=== PATIENT | male | born 1985 | race Two or more races ===

== ENCOUNTER 2016-12-24 20:49 | Inpatient (IN) | payer SELFPAY ==
[~2016-12-24] VITALS: Ht 165.1 cm
[2016-12-24] MEDS ORDERED: ACETAMINOPHEN 325 MG TAB PO ONE (21:17)
[2016-12-24] MEDS ORDERED: IBUPROFEN 600 MG TAB PO ONE ×2 (21:18→21:30)
[2016-12-24] MEDS ORDERED: ACETAMINOPHEN 500 MG TAB PO ONE (21:30)
[2016-12-24 22:20] LABS: Urine Blood TRACE /uL (Negative); Urine Color Yellow (Yellow); Urine Glucose Normal (Normal); Urine Granular Cast FEW /lpf (0); Urine Mucus FEW (None Seen); Urine Nitrite Negative (Negative); Urine RBC 3 /hpf (0 - 3); Urine Squamous Epithelial Cell FEW /hpf (<5)
[2016-12-24 22:27] LABS: Urine Ketone 3+ (Negative)
[2016-12-24 22:28] LABS: Urine Bilirubin 2+ (Negative)
[2016-12-24 22:33] LABS: CONDITION Y; Hematocrit 46.5 % (41.0-53.0); Hemoglobin 15.9 g/dL (13.5-17.5); Mean Corpuscular Hemoglobin 31.5 pg (28.0-32.0); Mean Corpuscular Hgb Conc. 34.2 g/dL (32.0-36.0); Mean Corpuscular Volume 92.2 fL (80.0-100.0); Platelet Count (auto) 125 10^3/uL (140-450); Red Cell Distribution Width 16.5 % (11.6-16.0); White Blood Cell 9.3 10^3/uL (4.4-10.8)
[2016-12-24 22:36] LABS: Metamyelocytes % 0; Myelocytes % 0; Promyelocytes % 0; Reactive Lymphocytes 0
[2016-12-24 22:54] LABS: Giant Platelets Few; Platelet Estimate Decreased
[2016-12-25 00:16] LABS: Albumin 2.2 g/dL (3.4-5.0); Calcium 6.3 mg/dL (8.5-10.1)
[2016-12-25 00:30] LABS: Basophils # (auto) 0 uL; Basophils % (auto) 0.2 % (0.0-2.0); CONDITION Y; Eosinophils # (auto) 0 uL; Eosinophils % (auto) 0.1 % (0.0-7.0); Hematocrit 46.7 % (41.0-53.0); Hemoglobin 15.5 g/dL (13.5-17.5); Lymphocytes # (auto) 0.7 uL; Lymphocytes % (auto) 7.3 % (10.0-50.0); Mean Corpuscular Hemoglobin 30.2 pg (28.0-32.0); Mean Corpuscular Hgb Conc. 33.1 g/dL (32.0-36.0); Mean Corpuscular Volume 91.3 fL (80.0-100.0); Mean Platelet Volume 10.6 fL (7.4-10.4); Monocytes # (auto) 0.2 uL; Neutrophils # (auto) 8.6 uL; Neutrophils % (auto) 90.4 % (37.0-80.0); Platelet Count (auto) 112 10^3/uL (140-450); Red Cell Distribution Width 16.1 % (11.6-16.0); White Blood Cell 9.6 10^3/uL (4.4-10.8)
[2016-12-25 00:39] LABS: BUN/Creatinine Ratio 6.8
[2016-12-25 00:41] LABS: Bilirubin, Total 4.8 mg/dL (0.2-1.0); Total Protein 8.4 g/dL (6.4-8.2)
[2016-12-25 00:42] LABS: Potassium 5.7 mmol/L (3.5-5.1)
[2016-12-25] MEDS ORDERED: THIAMINE HCL 100 MG/ML 2ML VIAL IV ONE (01:45)
[2016-12-25] MEDS ORDERED: SODIUM CHLORIDE 0.9% 1,000 ML IV ONE (01:45)
[2016-12-25] MEDS ORDERED: TEMAZEPAM 15 MG CAP PO PRN (03:45)
[2016-12-25] MEDS ORDERED: LORazepam 0.5 MG TAB PO PRN (03:45)
[2016-12-25] MEDS ORDERED: LACTULOSE 20Gm/30ML SOLN PO PRN (03:45)
[2016-12-25] MEDS ORDERED: HYDROcodone-ACET 5/325MG TAB PO PRN (03:45)
[2016-12-25] MEDS ORDERED: MORPHINE SULF INJ 2 MG/ML SYRINGE 1ML IV PRN (04:00)
[2016-12-25] MEDS ORDERED: NITROGLYCERIN 0.4 MG SL TAB SL PRN (04:00)
[2016-12-25] MEDS ORDERED: SODIUM POLYSTYRENE SULF 15GM/60ML SUSP PO ONE (04:15)
[2016-12-25] MEDS: SODIUM CHLORIDE 0.9% 1,000 ML IV SCH ×2 (04:15→12:15)
[2016-12-25] MEDS ORDERED: LACTULOSE 20Gm/30ML SOLN PO ONE (05:15)
[2016-12-25] MEDS: ACCU-CHEK COMFORT CURVE STRIP VI SCH ×5 (08:00→23:48)
[2016-12-25 08:35] VITALS: BP 136/83
[2016-12-25] MEDS: cefTRIAXone 1GM/50ML D5W 50 ML IV SCH (09:40)
[2016-12-25] MEDS: MORPHINE SULF INJ 2 MG/ML SYRINGE 1ML IV PRN ×2 (13:10→21:15)
[2016-12-25] MEDS: ONDANSETRON HCL 4 MG/2 ML VIAL IV PRN ×2 (13:10→21:15)
[2016-12-25] MEDS: THIAMINE INJ 100 MG, MULTIPLE VITAMIN 10 ML, FOLIC ACID 1 MG, MAGNESIUM SULF SDV 50% 8 ... IV SCH ×5 (13:11)
[2016-12-25 14:32] VITALS: BP 125/68
[2016-12-25] MEDS: ACETAMINOPHEN 500 MG TAB PO PRN ×2 (14:42→20:45)
[2016-12-25 17:24] VITALS: BP 128/79
[2016-12-25 21:30] VITALS: BP 127/78
[2016-12-25] MEDS: SOD CHL 0.45% 1,000 ML IV SCH (23:48)
[2016-12-26] MEDS: SOD CHL 0.45% 1,000 ML IV SCH (04:37)
[2016-12-26] MEDS: ACCU-CHEK COMFORT CURVE STRIP VI SCH ×5 (04:37→20:00)
[2016-12-26] MEDS: ONDANSETRON HCL 4 MG/2 ML VIAL IV PRN (04:37)
[2016-12-26] MEDS: MORPHINE SULF INJ 2 MG/ML SYRINGE 1ML IV PRN (04:38)
[2016-12-26 05:00] VITALS: BP 137/72
[2016-12-26] MEDS: ACETAMINOPHEN 500 MG TAB PO PRN (06:21)
[2016-12-26 06:24] LABS: Basophils # (auto) 0 uL; CONDITION Y; Eosinophils # (auto) 0 uL; Eosinophils % (auto) 0.1 % (0.0-7.0); Hematocrit 40.1 % (41.0-53.0); Hemoglobin 13.9 g/dL (13.5-17.5); Lymphocytes # (auto) 0.8 uL; Lymphocytes % (auto) 10.4 % (10.0-50.0); Mean Corpuscular Hgb Conc. 34.8 g/dL (32.0-36.0); Mean Corpuscular Volume 89.1 fL (80.0-100.0); Mean Platelet Volume 8.2 fL (7.4-10.4); Monocytes # (auto) 0.5 uL; Monocytes % (auto) 6.2 % (0.0-12.0); Neutrophils # (auto) 6.1 uL; Neutrophils % (auto) 83.3 % (37.0-80.0); Platelet Count (auto) 160 10^3/uL (140-450); White Blood Cell 7.3 10^3/uL (4.4-10.8)
[2016-12-26 06:45] LABS: Calcium 7.3 mg/dL (8.5-10.1)
[2016-12-26 06:52] LABS: BUN/Creatinine Ratio 7.8
[2016-12-26 06:53] LABS: Potassium 3.4 mmol/L (3.5-5.1)
[2016-12-26 09:00] VITALS: BP 146/95
[2016-12-26] MEDS: cefTRIAXone 1GM/50ML D5W 50 ML IV SCH (09:23)
[2016-12-26] MEDS ORDERED: SOD CHL 0.45% WITH 20MEQ KCL 1,000 ML IV SCH (09:45)
[2016-12-26] MEDS: THIAMINE INJ 100 MG, MULTIPLE VITAMIN 10 ML, FOLIC ACID 1 MG, MAGNESIUM SULF SDV 50% 8 ... IV SCH ×5 (12:00)
[2016-12-26 13:00] VITALS: BP 144/97
[2016-12-26 17:00] VITALS: BP 147/86
[2016-12-26] MEDS ORDERED: TAMSULOSIN HYDROCHLORIDE 0.4 MG CAP PO SCH (18:00)
[2016-12-26] MEDS ORDERED: chlordiazePOXIDE HCL 5 MG CAP PO PRN (21:00)
== END 2016-12-26 22:18 | disposition left against medical advice (07) | DRG 438 ==
LOC: ER 20:55 → TELE 20:56 → TELE-CENTR 12-25 08:41 → CENTRAL 12-25 16:29
PROVIDERS: ADMIT Nurse Practitioner Family; ATTEND Internal Medicine Pulmonary Disease
DX: K85.20 Alcohol induced acute pancreatitis without necrosis or infection (principal); K83.1 Obstruction of bile duct; E10.10 Type 1 diabetes mellitus with ketoacidosis without coma; E87.1 Hypo-osmolality and hyponatremia; R18.8 Other ascites; J98.11 Atelectasis; E11.9 Type 2 diabetes mellitus without complications; E66.9 Obesity, unspecified; F17.210 Nicotine dependence, cigarettes, uncomplicated; N32.0 Bladder-neck obstruction; K62.89 Other specified diseases of anus and rectum; E87.5 Hyperkalemia; F10.10 Alcohol abuse, uncomplicated; K59.00 Constipation, unspecified; K76.0 Fatty (change of) liver, not elsewhere classified; Z83.3 Family history of diabetes mellitus
CPT/HCPCS: 36415; 36600; 51702; 74176; 76705; 80048; 80053; 80307; 81001; 82010; 82150; 82805; 82962; 83036; 83690; 85007; 85025; 85027; 93005; 96361; 96374; J0696; J2405

== ENCOUNTER 2016-12-27 03:22 | Emergency (ER) | payer SELFPAY ==
[~2016-12-27] VITALS: Ht 165.1 cm; Wt 86.2 kg
[2016-12-27 04:16] VITALS: BP 164/99
[2016-12-27] MEDS ORDERED: ACETAMINOPHEN 325 MG TAB PO ONE (08:29)
== END 2016-12-27 06:02 | disposition left against medical advice (07) ==
LOC: ER 03:22
DX: R33.9 Retention of urine, unspecified (principal); R31.9 Hematuria, unspecified; Z53.21 Procedure and treatment not carried out due to patient leaving prior to being seen by health care provider
CPT/HCPCS: A4565

== ENCOUNTER 2016-12-27 08:09 | Inpatient (IN) | payer MEDICAID ==
[~2016-12-27] VITALS: Ht 165.1 cm; Wt 80.4 kg
[2016-12-27] MEDS ORDERED: ACETAMINOPHEN 325 MG TAB PO ONE (08:45)
[2016-12-27] MEDS ORDERED: cefTRIAXone 1GM/50ML D5W 50 ML IV ONE ×2 (08:45→19:15)
[2016-12-27 09:44] LABS: Basophils # (auto) 0 uL; Basophils % (auto) 0.1 % (0.0-2.0); CONDITION Y; Eosinophils # (auto) 0 uL; Hematocrit 35.4 % (41.0-53.0); Hemoglobin 12.5 g/dL (13.5-17.5); Lymphocytes # (auto) 0.5 uL; Lymphocytes % (auto) 7.1 % (10.0-50.0); Mean Corpuscular Hemoglobin 31.4 pg (28.0-32.0); Mean Corpuscular Hgb Conc. 35.2 g/dL (32.0-36.0); Mean Corpuscular Volume 89.1 fL (80.0-100.0); Mean Platelet Volume 7.8 fL (7.4-10.4); Monocytes # (auto) 1.2 uL; Monocytes % (auto) 15.4 % (0.0-12.0); Neutrophils # (auto) 5.9 uL; Neutrophils % (auto) 77.4 % (37.0-80.0); Platelet Count (auto) 209 10^3/uL (140-450); Red Cell Distribution Width 15.9 % (11.6-16.0); White Blood Cell 7.7 10^3/uL (4.4-10.8)
[2016-12-27 09:59] LABS: Albumin 2.2 g/dL (3.4-5.0); BUN/Creatinine Ratio 16.9; Bilirubin, Total 3.4 mg/dL (0.2-1.0); Calcium 8.2 mg/dL (8.5-10.1); Total Protein 7.5 g/dL (6.4-8.2)
[2016-12-27] MEDS ORDERED: POTASSIUM CHL 20 Meq TABLET PO ONE ×3 (10:08→18:15)
[2016-12-27 10:11] LABS: Potassium 2.7 mmol/L (3.5-5.1)
[2016-12-27] MEDS ORDERED: IBUPROFEN 600 MG TAB PO ONE ×2 (14:08→14:15)
[2016-12-27] MEDS ORDERED: PROMETHAZINE HCL 25 MG/ML 1ML IV ONE (17:00)
[2016-12-27] MEDS ORDERED: TAMSULOSIN HYDROCHLORIDE 0.4 MG CAP PO ONE (17:00)
[2016-12-27] MEDS ORDERED: NALBUPHINE HCL 10 MG/1ml INJECTION IV ONE (17:00)
[2016-12-27] MEDS ORDERED: SODIUM CHLORIDE 0.9% 1,000 ML IV ONE (17:04)
[2016-12-27] MEDS ORDERED: POTASSIUM CHL 10% (20 MEQ/15ML) ORAL SOLN PO ONE (17:15)
[2016-12-27] MEDS ORDERED: OLANZapine 5 MG TAB PO ONE (17:30)
[2016-12-27] MEDS ORDERED: LORazepam 2MG/ML-1ML VIAL ONE ×3 (17:54→20:41)
[2016-12-27] MEDS ORDERED: LORazepam 2MG/ML-1ML VIAL IV ONE ×3 (18:15→21:00)
[2016-12-27] MEDS ORDERED: HALOPERIDOL LACTATE 5 MG/ML INJ VIAL ONE (18:43)
[2016-12-27] MEDS ORDERED: SODIUM CHLORIDE 0.9% 1,000 ML IV SCH (19:00)
[2016-12-27] MEDS ORDERED: HALOPERIDOL LACTATE 5 MG/ML INJ VIAL IM ONE ×2 (19:00)
[2016-12-27] MEDS ORDERED: NITROGLYCERIN 0.4 MG SL TAB SL PRN (19:15)
[2016-12-27] MEDS ORDERED: chlordiazePOXIDE HCL 5 MG CAP ONE (19:15)
[2016-12-27] MEDS ORDERED: MORPHINE SULF INJ 2 MG/ML SYRINGE 1ML IV PRN (19:15)
[2016-12-27] MEDS ORDERED: LORazepam 2MG/ML-1ML VIAL IV PRN (19:15)
[2016-12-27] MEDS ORDERED: ONDANSETRON HCL 4 MG/2 ML VIAL IV PRN (19:15)
[2016-12-27 19:24] LABS: Hematocrit 25.2 % (41.0-53.0); Hemoglobin 8.8 g/dL (13.5-17.5)
[2016-12-27] MEDS ORDERED: chlordiazePOXIDE HCL 5 MG CAP PO ONE (19:30)
[2016-12-27] MEDS ORDERED: chlordiazePOXIDE HCL 25 MG CAP PO ONE (20:00)
[2016-12-27] MEDS: SOD CHL 0.9%/ KCL 40MEQ 1,000 ML IV SCH (20:19)
[2016-12-27] MEDS ORDERED: LIDOCAINE 2% JELLY 11ml (GLYDO) ONE (21:15)
[2016-12-27] MEDS ORDERED: LIDOCAINE 2% JELLY 11ml (GLYDO) UR ONE (21:15)
[2016-12-27] MEDS: metroNIDAZOLE 250MG/50 ML 50 ML IV SCH (21:51)
[2016-12-28] MEDS ORDERED: chlordiazePOXIDE HCL 5 MG CAP PO SCH
[2016-12-28 00:45] LABS: Hematocrit 25.5 % (41.0-53.0); Hemoglobin 8.5 g/dL (13.5-17.5)
[2016-12-28] MEDS: LORazepam 2MG/ML-1ML VIAL IV PRN ×9 (02:28→22:30)
[2016-12-28] MEDS ORDERED: HALOPERIDOL LACTATE 5 MG/ML INJ VIAL IM ONE (03:00)
[2016-12-28] MEDS: SOD CHL 0.9%/ KCL 40MEQ 1,000 ML IV SCH ×3 (04:21→21:16)
[2016-12-28] MEDS ORDERED: ACETAMINOPHEN 650 MG RECT SUPP PR ONE ×2 (04:38→05:00)
[2016-12-28 04:41] LABS: Basophils # (auto) 0 uL; Basophils % (auto) 0.1 % (0.0-2.0); CONDITION Y; DEFINITIVE SEE PRINTOUT; Eosinophils # (auto) 0 uL; Eosinophils % (auto) 0.6 % (0.0-7.0); Hematocrit 22.2 % (41.0-53.0); Hemoglobin 7.7 g/dL (13.5-17.5); Lymphocytes # (auto) 0.4 uL; Lymphocytes % (auto) 6.5 % (10.0-50.0); Mean Corpuscular Hemoglobin 31.3 pg (28.0-32.0); Mean Corpuscular Hgb Conc. 34.6 g/dL (32.0-36.0); Mean Corpuscular Volume 90.4 fL (80.0-100.0); Mean Platelet Volume 7.8 fL (7.4-10.4); Monocytes % (auto) 16.8 % (0.0-12.0); Neutrophils # (auto) 4.4 uL; Platelet Count (auto) 195 10^3/uL (140-450); Red Cell Distribution Width 16.3 % (11.6-16.0); White Blood Cell 5.8 10^3/uL (4.4-10.8)
[2016-12-28 05:10] LABS: Albumin 1.6 g/dL (3.4-5.0); Bilirubin, Total 1.7 mg/dL (0.2-1.0); Calcium 7.4 mg/dL (8.5-10.1); Potassium 3.5 mmol/L (3.5-5.1); Total Protein 5.3 g/dL (6.4-8.2)
[2016-12-28] MEDS: metroNIDAZOLE 250MG/50 ML 50 ML IV SCH ×3 (05:25→22:37)
[2016-12-28] MEDS: chlordiazePOXIDE HCL 25 MG CAP PO SCH ×4 (05:25→17:49)
[2016-12-28] MEDS: MORPHINE SULF INJ 2 MG/ML SYRINGE 1ML IV PRN ×3 (05:45→12:54)
[2016-12-28] MEDS ORDERED: ACETAMINOPHEN 325 MG TAB PO ONE (07:00)
[2016-12-28] MEDS: cefTRIAXone 1GM/50ML D5W 50 ML IV SCH (09:10)
[2016-12-28] MEDS ORDERED: SODIUM CHLORIDE 0.9% 1,000 ML IV ONE (09:45)
[2016-12-28] MEDS: ACETAMINOPHEN 650 MG RECT SUPP PR PRN ×2 (10:17→21:34)
[2016-12-28] MEDS: HALOPERIDOL LACTATE 5 MG/ML INJ VIAL IM PRN ×3 (10:45→22:30)
[2016-12-28] MEDS ORDERED: THIAMINE INJ 100 MG, MULTIPLE VITAMIN 10 ML, FOLIC ACID 1 MG, MAGNESIUM SULF SDV 50% 8 ... IV ONE ×5 (14:30)
[2016-12-28] MEDS ORDERED: LORazepam 2MG/ML-1ML VIAL ONE (23:48)
[2016-12-28] MEDS ORDERED: diphenhdrAMINE HCL 50 MG/1 ML VL ONE (23:52)
[2016-12-28] MEDS ORDERED: HALOPERIDOL LACTATE 5 MG/ML INJ VIAL ONE (23:52)
[2016-12-28] MEDS ORDERED: ETOMIDATE (2MG/ML) 20ML VIAL IV ONE (23:58)
[2016-12-28] MEDS ORDERED: SUCCINYLCHOLINE CHLORIDE 20 MG/ML 10ML VIAL IV ONE (23:58)
[2016-12-29] VITALS (91 sets, daily range): BP systolic 76–140; BP diastolic 29–87
[2016-12-29] MEDS ORDERED: MIDAZOLAM DRIP 50 mg/50mL 50 ML IV ONE ×2 (00:11→03:08)
[2016-12-29] MEDS ORDERED: HALOPERIDOL LACTATE 5 MG/ML INJ VIAL ONE (00:13)
[2016-12-29] MEDS ORDERED: LORazepam 2MG/ML-1ML VIAL ONE (00:14)
[2016-12-29] MEDS ORDERED: diphenhdrAMINE HCL 50 MG/1 ML VL ONE (00:14)
[2016-12-29] MEDS ORDERED: SUCCINYLCHOLINE CHLORIDE 20 MG/ML 10ML VIAL IV ONE ×3 (00:17→05:00)
[2016-12-29] MEDS ORDERED: PROPOFOL 100 ML IV ONE ×2 (00:40→03:08)
[2016-12-29] MEDS ORDERED: cefTRIAXone 1GM/50ML D5W 50 ML IV ONE (02:15)
[2016-12-29] MEDS ORDERED: PIPERACILLIN-TAZOB 3.375GM 100 ML IV ONE (02:15)
[2016-12-29 03:21] LABS: Allen Test No; Blood 02Sat 98.9 % (96-100); Blood COHb 0.3 % (0.5-1.5); Blood MetHb 0.4 % (0.0-1.5); HCO3 13.6 mmol/L (22-26.0); HHb 1.1 % (0.0-5.0); MODE VENT - PCV; O2Hb 98.2 % (94.0-97.0); PCO2 22.5 mmHg (35.0-45.0); PCO2(T) 24.6 mmHg (35.0-45.0); PO2 394.7 mmHg (80.0-100.0); Sample Type Arterial; pH 7.399 (7.350-7.450)
[2016-12-29] MEDS ORDERED: ACETAMINOPHEN 650 mg PER 20 mL UD ONE (03:55)
[2016-12-29 04:21] LABS: CONDITION Y; DEFINITIVE SEE PRINTOUT; Hematocrit 22.7 % (41.0-53.0); Hemoglobin 7.8 g/dL (13.5-17.5); Mean Corpuscular Hemoglobin 31.8 pg (28.0-32.0); Mean Corpuscular Hgb Conc. 34.2 g/dL (32.0-36.0); Mean Corpuscular Volume 92.9 fL (80.0-100.0); Mean Platelet Volume 7.8 fL (7.4-10.4); Platelet Count (auto) 314 10^3/uL (140-450); SUSPECT SEE PRINTOUT; White Blood Cell 12.9 10^3/uL (4.4-10.8)
[2016-12-29 04:31] LABS: TUBE NUMBER TUBE 3
[2016-12-29 04:32] LABS: CSF Mononuclear Cells 100 %; Description,CSF VERY SLIGHTLY RED
[2016-12-29 04:33] LABS: INR 1.01 (0.9-1.15)
[2016-12-29 04:46] LABS: Albumin 1.9 g/dL (3.4-5.0); BUN/Creatinine Ratio 15.3; Bilirubin, Total 1.6 mg/dL (0.2-1.0); Calcium 7.8 mg/dL (8.5-10.1); Magnesium 2.3 mg/dL (1.6-2.6); Potassium 3.7 mmol/L (3.5-5.1); Total Protein 6.2 g/dL (6.4-8.2)
[2016-12-29 04:51] LABS: Metamyelocytes % 0; Myelocytes % 0; Promyelocytes % 0; Reactive Lymphocytes 0
[2016-12-29] MEDS ORDERED: HALOPERIDOL LACTATE 5 MG/ML INJ VIAL IV ONE (05:00)
[2016-12-29] MEDS ORDERED: diphenhdrAMINE HCL 50 MG/1 ML VL IV ONE (05:00)
[2016-12-29] MEDS ORDERED: LORazepam 2MG/ML-1ML VIAL IV ONE (05:00)
[2016-12-29] MEDS ORDERED: ETOMIDATE (2MG/ML) 20ML VIAL IV ONE (05:00)
[2016-12-29 05:11] LABS: Anisocytosis Slight; Platelet Estimate Adequate; Tear Drop Cells FEW
[2016-12-29 05:12] LABS: Polychromasia Slight
[2016-12-29] MEDS: SOD CHL 0.9%/ KCL 40MEQ 1,000 ML IV SCH ×3 (05:20→21:57)
[2016-12-29] MEDS: PROPOFOL 100 ML IV SCH ×2 (05:25→20:00)
[2016-12-29] MEDS: MIDAZOLAM DRIP 50 mg/50mL 50 ML IV SCH ×2 (05:28→23:50)
[2016-12-29] MEDS ORDERED: VANCOMYCIN PER PHARMACY 0 MG IV SCH ×3 (05:45→15:30)
[2016-12-29] MEDS: chlordiazePOXIDE HCL 25 MG CAP PO SCH ×5 (06:00→23:51)
[2016-12-29] MEDS: metroNIDAZOLE 250MG/50 ML 50 ML IV SCH ×3 (06:00→21:35)
[2016-12-29] MEDS ORDERED: NOREPINEPHRINE BITARTRATE 250 ML IV ONE (07:18)
[2016-12-29 07:28] LABS: Allen Test Yes; Base Excess -7.1 mmol/L (-2.0-2.0); Blood 02Sat 96.2 % (96-100); Blood COHb 0.4 % (0.5-1.5); Blood MetHb 0.5 % (0.0-1.5); HCO3 16.7 mmol/L (22-26.0); HHb 3.8 % (0.0-5.0); MODE VENT - PCV; O2Hb 95.3 % (94.0-97.0); PCO2 26.6 mmHg (35.0-45.0); PIP 26; PO2(T) 102.1 mmHg (80.0-100.0); Sample Type Arterial; pH 7.416 (7.350-7.450)
[2016-12-29] MEDS ORDERED: VANCOMYCIN 1GM/250ML D5W 250 ML IV SCH (08:00)
[2016-12-29] MEDS: cefTRIAXone 1GM/50ML D5W 50 ML IV SCH (09:30)
[2016-12-29] MEDS: VANCOMYCIN HCL 125MG/5ML ORAL SOL PO SCH ×3 (11:35→21:58)
[2016-12-29] MEDS: NOREPINEPHRINE BITARTRATE 250 ML IV SCH (14:46)
[2016-12-29 15:17] LABS: Urine Bilirubin Negative (Negative); Urine Glucose Normal (Normal); Urine Nitrite Negative (Negative); Urine RBC 287 /hpf (0 - 3); Urine Urobilinogen Normal (Negative)
[2016-12-29 15:19] LABS: Urine Blood 2+ /uL (Negative); Urine Color Yellow (Yellow); Urine Ketone 1+ (Negative)
[2016-12-29 15:25] LABS: BUN/Creatinine Ratio 17.1; Calcium 7.4 mg/dL (8.5-10.1)
[2016-12-29 15:28] LABS: Allen Test Yes; Base Excess -6.5 mmol/L (-2.0-2.0); HCO3 16.5 mmol/L (22-26.0); MODE VENT - PCV; PCO2 26.8 mmHg (35.0-45.0); PCO2(T) 29.3 mmHg (35.0-45.0); PIP 26; PO2 88.7 mmHg (80.0-100.0); PO2(T) 100.7 mmHg (80.0-100.0); Sample Type Arterial; pH 7.406 (7.350-7.450)
[2016-12-29] MEDS: THIAMINE INJ 100 MG, MULTIPLE VITAMIN 10 ML, FOLIC ACID 1 MG, MAGNESIUM SULF SDV 50% 8 ... IV SCH ×5 (16:01)
[2016-12-29] MEDS: VANCOMYCIN 1GM/250ML D5W 250 ML IV SCH (21:55)
[2016-12-29] MEDS: ALBUMIN 25% 100 ML IV SCH (22:01)
[2016-12-29] MEDS: LORazepam 2MG/ML-1ML VIAL IV PRN (23:53)
[2016-12-29] MEDS: ACETAMINOPHEN 650 mg PER 20 mL UD GT PRN (23:53)
[2016-12-30] VITALS (86 sets, daily range): BP systolic 90–187; BP diastolic 37–94
[2016-12-30] MEDS: PROPOFOL 100 ML IV SCH ×4 (00:12→22:50)
[2016-12-30] MEDS: fentaNYL Drip 2500mCg/250mlNS 250 ML IV SCH (00:21)
[2016-12-30 04:11] LABS: CONDITION Y; DEFINITIVE SEE PRINTOUT; Hematocrit 19.7 % (41.0-53.0); Hemoglobin 7.1 g/dL (13.5-17.5); INR 1.06 (0.9-1.15); Mean Corpuscular Hemoglobin 32.1 pg (28.0-32.0); Mean Corpuscular Hgb Conc. 35.7 g/dL (32.0-36.0); Mean Corpuscular Volume 89.8 fL (80.0-100.0); Mean Platelet Volume 7.8 fL (7.4-10.4); Platelet Count (auto) 236 10^3/uL (140-450); Prothrombin Time 11.6 sec (9.37-12.3); SUSPECT SEE PRINTOUT; White Blood Cell 25.4 10^3/uL (4.4-10.8)
[2016-12-30 04:28] LABS: Albumin 1.9 g/dL (3.4-5.0); BUN/Creatinine Ratio 23.3; Calcium 7.7 mg/dL (8.5-10.1); Magnesium 2.1 mg/dL (1.6-2.6); Phosphorus 1.8 mg/dL (2.5-4.90); Potassium 3.1 mmol/L (3.5-5.1); Total Protein 5.3 g/dL (6.4-8.2)
[2016-12-30] MEDS: MIDAZOLAM DRIP 50 mg/50mL 50 ML IV SCH ×3 (04:32→20:00)
[2016-12-30 04:52] LABS: Metamyelocytes % 4; Myelocytes % 2; Platelet Estimate Adequate; Promyelocytes % 0; Reactive Lymphocytes 0
[2016-12-30 04:53] LABS: Large Platelets FEW; Polychromasia Slight; Stomatocytes Few
[2016-12-30] MEDS: POTASSIUM CHL 20MEQ/100ML 100 ML IV SCH ×6 (05:18→14:30)
[2016-12-30] MEDS: metroNIDAZOLE 250MG/50 ML 50 ML IV SCH ×3 (05:20→22:00)
[2016-12-30] MEDS: VANCOMYCIN HCL 125MG/5ML ORAL SOL PO SCH ×4 (05:21→22:00)
[2016-12-30] MEDS: chlordiazePOXIDE HCL 25 MG CAP PO SCH ×2 (05:21→18:00)
[2016-12-30 06:12] LABS: Allen Test Modified; Blood 02Sat 95.2 % (96-100); Blood COHb 0.5 % (0.5-1.5); Blood MetHb 0.2 % (0.0-1.5); HCO3 18.4 mmol/L (22-26.0); HHb 4.8 % (0.0-5.0); MODE VENT - PCV; O2Hb 94.5 % (94.0-97.0); PCO2 29.7 mmHg (35.0-45.0); PCO2(T) 29.7 mmHg (35.0-45.0); PIP 27; PO2 82.8 mmHg (80.0-100.0); PO2(T) 82.8 mmHg (80.0-100.0); Sample Type Arterial; Spont Vt 663
[2016-12-30] MEDS ORDERED: ACYCLOVIR 10MG/KG Q8HR PER RX 0 ML IV SCH ×2 (08:45→09:00)
[2016-12-30] MEDS: VANCOMYCIN 1GM/250ML D5W 250 ML IV SCH ×2 (09:00→20:00)
[2016-12-30] MEDS: cefTRIAXone 1GM/50ML D5W 50 ML IV SCH (10:00)
[2016-12-30] MEDS ORDERED: PANTOPRAZOLE SODIUM 40 MG/10 ML VIAL IV SCH (10:00)
[2016-12-30] MEDS ORDERED: POTASSIUM PHOSPHATE 44 MEQ in SODIUM CHL 0.9% 250 ML IV ONE (10:45)
[2016-12-30] MEDS: SODIUM CHLORIDE 0.9% 1,000 ML IV SCH ×2 (11:15→21:08)
[2016-12-30] MEDS: FAMOTIDINE (10MG/ML) 2ML VL IV SCH (11:19)
[2016-12-30] MEDS: SODIUM CHL 0.9% IV SCH ×2 (13:00→18:00)
[2016-12-30] MEDS: ACYCLOVIR IV SCH ×2 (13:00→18:00)
[2016-12-30] MEDS ORDERED: LIDOCAINE 1% HCL (LOCAL ANESTH.) INJ 20ML MDV ID ONE (14:00)
[2016-12-30] MEDS: NOREPINEPHRINE BITARTRATE 250 ML IV SCH (14:46)
[2016-12-30 15:00] LABS: Hematocrit 21.5 % (41.0-53.0); Hemoglobin 7.8 g/dL (13.5-17.5)
[2016-12-30] MEDS: ALBUMIN 25% 100 ML IV SCH ×2 (17:00→22:08)
[2016-12-30 19:14] LABS: Hematocrit 20.2 % (41.0-53.0); Hemoglobin 7.3 g/dL (13.5-17.5)
[2016-12-30] MEDS ORDERED: SOD CHL 0.9%/ KCL 40MEQ 1,000 ML IV SCH (20:00)
[2016-12-30] MEDS: THIAMINE INJ 100 MG, MULTIPLE VITAMIN 10 ML, FOLIC ACID 1 MG, MAGNESIUM SULF SDV 50% 8 ... IV SCH ×5 (20:30)
[2016-12-30] MEDS: PANTOPRAZOLE SODIUM 40 MG/10 ML VIAL IV SCH (21:40)
[2016-12-30] MEDS: SODIUM CHLOR 0.9% PF (SALINE LOCK) 10ML VIAL IV SCH (21:40)
[2016-12-31] VITALS (92 sets, daily range): BP systolic 89–187; BP diastolic 37–93
[2016-12-31] MEDS: fentaNYL Drip 2500mCg/250mlNS 250 ML IV SCH ×2 (00:14→23:48)
[2016-12-31] MEDS: chlordiazePOXIDE HCL 25 MG CAP PO SCH ×5 (00:14→23:48)
[2016-12-31] MEDS ORDERED: FUROSEMIDE 40 MG/4 ML VIAL IV ONE (00:15)
[2016-12-31] MEDS: MIDAZOLAM DRIP 50 mg/50mL 50 ML IV SCH ×6 (00:25→23:49)
[2016-12-31] MEDS: ACETAMINOPHEN 650 mg PER 20 mL UD GT PRN ×3 (00:33→19:31)
[2016-12-31] MEDS: SODIUM CHL 0.9% IV SCH ×3 (01:36→18:14)
[2016-12-31] MEDS: ACYCLOVIR IV SCH ×3 (01:36→18:14)
[2016-12-31] MEDS: PROPOFOL 100 ML IV SCH ×6 (01:37→23:49)
[2016-12-31 04:08] LABS: Hematocrit 25.4 % (41.0-53.0); Hemoglobin 8.8 g/dL (13.5-17.5)
[2016-12-31 04:11] LABS: CONDITION Y; Hemoglobin 8.8 g/dL (13.5-17.5); Mean Corpuscular Hemoglobin 31.5 pg (28.0-32.0); Mean Corpuscular Volume 90.1 fL (80.0-100.0); Mean Platelet Volume 7.7 fL (7.4-10.4); Platelet Count (auto) 219 10^3/uL (140-450); Red Cell Distribution Width 15.7 % (11.6-16.0); SUSPECT SEE PRINTOUT; White Blood Cell 24.5 10^3/uL (4.4-10.8)
[2016-12-31 04:12] LABS: Hematocrit 25.4 % (41.0-53.0)
[2016-12-31 04:14] LABS: Promyelocytes % 0; Reactive Lymphocytes 0
[2016-12-31 04:31] LABS: Albumin 2.3 g/dL (3.4-5.0); Calcium 7.5 mg/dL (8.5-10.1)
[2016-12-31 04:33] LABS: BUN/Creatinine Ratio 5.9
[2016-12-31 04:35] LABS: Total Protein 5.5 g/dL (6.4-8.2)
[2016-12-31 04:41] LABS: Potassium 2.6 mmol/L (3.5-5.1)
[2016-12-31 05:09] LABS: Metamyelocytes % 5; Myelocytes % 1
[2016-12-31 05:10] LABS: Anisocytosis Slight; Platelet Estimate Adequate; Stomatocytes Few
[2016-12-31 05:11] LABS: Polychromasia Slight
[2016-12-31] MEDS: POTASSIUM CHL 20MEQ/100ML 100 ML IV SCH ×7 (05:25→18:00)
[2016-12-31] MEDS: metroNIDAZOLE 250MG/50 ML 50 ML IV SCH ×3 (05:33→21:35)
[2016-12-31] MEDS: VANCOMYCIN HCL 125MG/5ML ORAL SOL PO SCH ×4 (05:33→21:35)
[2016-12-31] MEDS: SODIUM CHLORIDE 0.9% 1,000 ML IV SCH (05:33)
[2016-12-31] MEDS: FAMOTIDINE (10MG/ML) 2ML VL IV SCH (08:30)
[2016-12-31] MEDS: cefTRIAXone 1GM/50ML D5W 50 ML IV SCH (08:53)
[2016-12-31] MEDS: PANTOPRAZOLE SODIUM 40 MG/10 ML VIAL IV SCH ×2 (08:54→21:35)
[2016-12-31] MEDS: SODIUM CHLOR 0.9% PF (SALINE LOCK) 10ML VIAL IV SCH ×2 (08:54→21:35)
[2016-12-31] MEDS: VANCOMYCIN 1GM/250ML D5W 250 ML IV SCH ×3 (09:00→23:48)
[2016-12-31] MEDS ORDERED: PIPERACILLIN-TAZOB 3.375GM 100 ML IV ONE (09:15)
[2016-12-31 09:23] LABS: Allen Test Modified; Blood COHb 0.3 % (0.5-1.5); Blood MetHb 0.4 % (0.0-1.5); HCO3 26.1 mmol/L (22-26.0); MODE VENT - PCV; O2Hb 94.3 % (94.0-97.0); PCO2 33.8 mmHg (35.0-45.0); PCO2(T) 35.5 mmHg (35.0-45.0); PIP 27; Sample Type Arterial; pH 7.505 (7.350-7.450)
[2016-12-31] MEDS ORDERED: POTASSIUM CHL 10% (20 MEQ/15ML) ORAL SOLN GT ONE (09:45)
[2016-12-31] MEDS: ALBUMIN 25% 100 ML IV SCH (10:00)
[2016-12-31] MEDS: THIAMINE HCL 100 MG/ML 2ML VIAL IV SCH (10:00)
[2016-12-31] MEDS: SOD CHL 0.9%/ KCL 20MEQ 1,000 ML IV SCH ×2 (11:45→19:31)
[2016-12-31] MEDS ORDERED: POTASSIUM PHOSPHATE 44 MEQ in SODIUM CHL 0.9% 250 ML IV ONE (11:45)
[2016-12-31 12:26] LABS: Allen Test Modified; Base Excess 2.9 mmol/L (-2.0-2.0); Blood 02Sat 92.3 % (96-100); Blood COHb 0.2 % (0.5-1.5); Blood MetHb 0.2 % (0.0-1.5); HCO3 26.2 mmol/L (22-26.0); HHb 7.7 % (0.0-5.0); MODE VENT - A/C; O2Hb 91.9 % (94.0-97.0); PCO2(T) 36.4 mmHg (35.0-45.0); PO2 65.7 mmHg (80.0-100.0); PO2(T) 69.9 mmHg (80.0-100.0); Sample Type Arterial; pH 7.492 (7.350-7.450)
[2016-12-31] MEDS: AZITHROMYCIN 500MG/D5W 250ML 250 ML IV SCH (12:30)
[2016-12-31] MEDS: NOREPINEPHRINE BITARTRATE 250 ML IV SCH (14:46)
[2016-12-31] MEDS: PIPERACILLIN-TAZOB 3.375GM 100 ML IV SCH ×2 (15:45→21:08)
[2016-12-31 20:11] LABS: HSV-1 DNA CSF Negative (Negative)
[2017-01-01] VITALS (65 sets, daily range): BP systolic 82–151; BP diastolic 36–84
[2017-01-01] MEDS: ACETAMINOPHEN 650 mg PER 20 mL UD GT PRN ×2 (01:09→11:17)
[2017-01-01] MEDS: SODIUM CHL 0.9% IV SCH ×3 (02:00→18:00)
[2017-01-01] MEDS: ACYCLOVIR IV SCH ×3 (02:00→18:00)
[2017-01-01] MEDS: PIPERACILLIN-TAZOB 3.375GM 100 ML IV SCH ×4 (02:59→20:43)
[2017-01-01 06:12] LABS: Allen Test Modified; Base Excess 0.4 mmol/L (-2.0-2.0); Blood 02Sat 87.7 % (96-100); Blood COHb 0.3 % (0.5-1.5); Blood MetHb 0.3 % (0.0-1.5); HCO3 25.4 mmol/L (22-26.0); HHb 12.2 % (0.0-5.0); MODE VENT - A/C; O2Hb 87.2 % (94.0-97.0); PCO2 42.7 mmHg (35.0-45.0); PCO2(T) 43.6 mmHg (35.0-45.0); PO2 61.8 mmHg (80.0-100.0); Sample Type Arterial; pH 7.393 (7.350-7.450)
[2017-01-01] MEDS: LORazepam 2MG/ML-1ML VIAL IV PRN (06:20)
[2017-01-01] MEDS: metroNIDAZOLE 250MG/50 ML 50 ML IV SCH ×3 (06:36→21:36)
[2017-01-01] MEDS: VANCOMYCIN HCL 125MG/5ML ORAL SOL PO SCH ×4 (06:42→21:36)
[2017-01-01] MEDS: chlordiazePOXIDE HCL 25 MG CAP PO SCH ×4 (06:42→23:56)
[2017-01-01] MEDS: SOD CHL 0.9%/ KCL 20MEQ 1,000 ML IV SCH ×2 (06:43→16:39)
[2017-01-01] MEDS: VANCOMYCIN 1GM/250ML D5W 250 ML IV SCH ×3 (08:30→23:56)
[2017-01-01] MEDS: fentaNYL Drip 2500mCg/250mlNS 250 ML IV SCH (08:32)
[2017-01-01] MEDS: THIAMINE HCL 100 MG/ML 2ML VIAL IV SCH (09:40)
[2017-01-01] MEDS: SODIUM CHLOR 0.9% PF (SALINE LOCK) 10ML VIAL IV SCH ×2 (09:40→21:36)
[2017-01-01] MEDS: FAMOTIDINE (10MG/ML) 2ML VL IV SCH (09:40)
[2017-01-01] MEDS: PANTOPRAZOLE SODIUM 40 MG/10 ML VIAL IV SCH (09:40)
[2017-01-01] MEDS: PROPOFOL 100 ML IV SCH ×5 (10:30→22:39)
[2017-01-01] MEDS: MIDAZOLAM DRIP 50 mg/50mL 50 ML IV SCH ×4 (10:30→22:40)
[2017-01-01] MEDS: HALOPERIDOL LACTATE 5 MG/ML INJ VIAL IM PRN ×2 (10:59→18:21)
[2017-01-01] MEDS: POTASSIUM CHL 10% (20 MEQ/15ML) ORAL SOLN GT SCH ×2 (11:28→21:35)
[2017-01-01] MEDS ORDERED: POTASSIUM CHL 10% (20 MEQ/15ML) ORAL SOLN PO ONE (11:30)
[2017-01-01 11:44] LABS: CONDITION Y; Hematocrit 26.9 % (41.0-53.0); Hemoglobin 9.3 g/dL (13.5-17.5); Mean Corpuscular Hemoglobin 31.4 pg (28.0-32.0); Mean Corpuscular Hgb Conc. 34.8 g/dL (32.0-36.0); Mean Corpuscular Volume 90.3 fL (80.0-100.0); Mean Platelet Volume 8.1 fL (7.4-10.4); Platelet Count (auto) 212 10^3/uL (140-450); Red Cell Distribution Width 16.5 % (11.6-16.0); SUSPECT SEE PRINTOUT
[2017-01-01 11:48] LABS: Myelocytes % 0; Promyelocytes % 0; Reactive Lymphocytes 0
[2017-01-01 11:58] LABS: Albumin 2.1 g/dL (3.4-5.0); BUN/Creatinine Ratio 4.7; Bilirubin, Total 1.3 mg/dL (0.2-1.0); Potassium 3.3 mmol/L (3.5-5.1); Total Protein 5.5 g/dL (6.4-8.2)
[2017-01-01] MEDS: AZITHROMYCIN 500MG/D5W 250ML 250 ML IV SCH (12:09)
[2017-01-01] MEDS: NOREPINEPHRINE BITARTRATE 250 ML IV SCH (14:46)
[2017-01-01 15:06] LABS: Metamyelocytes % 2; Platelet Estimate Adequate
[2017-01-01 15:07] LABS: Stomatocytes Few
[2017-01-01 15:09] LABS: Anisocytosis Slight
[2017-01-02] VITALS (90 sets, daily range): BP systolic 81–174; BP diastolic 37–117
[2017-01-02] MEDS: ACYCLOVIR IV SCH ×3 (02:22→17:57)
[2017-01-02] MEDS: SODIUM CHL 0.9% IV SCH ×3 (02:22→17:57)
[2017-01-02] MEDS: ACETAMINOPHEN 650 mg PER 20 mL UD GT PRN ×2 (02:23→21:48)
[2017-01-02] MEDS: PIPERACILLIN-TAZOB 3.375GM 100 ML IV SCH ×4 (02:23→20:59)
[2017-01-02 03:35] LABS: CONDITION Y; Hemoglobin 8.9 g/dL (13.5-17.5); Mean Corpuscular Volume 91.2 fL (80.0-100.0); Mean Platelet Volume 7.4 fL (7.4-10.4); Platelet Count (auto) 252 10^3/uL (140-450); SUSPECT SEE PRINTOUT; White Blood Cell 18.4 10^3/uL (4.4-10.8)
[2017-01-02 03:55] LABS: Albumin 1.8 g/dL (3.4-5.0); Calcium 7.7 mg/dL (8.5-10.1); Potassium 3.6 mmol/L (3.5-5.1)
[2017-01-02 03:57] LABS: BUN/Creatinine Ratio 6.7
[2017-01-02 04:00] LABS: Bilirubin, Total 0.9 mg/dL (0.2-1.0); Total Protein 5.4 g/dL (6.4-8.2)
[2017-01-02 04:01] LABS: Promyelocytes % 0; Reactive Lymphocytes 0
[2017-01-02 04:55] LABS: Metamyelocytes % 6; Myelocytes % 1; Platelet Estimate Adequate
[2017-01-02 04:56] LABS: Polychromasia Slight
[2017-01-02 04:57] LABS: Anisocytosis Moderate; Macrocytosis Slight
[2017-01-02] MEDS: MIDAZOLAM DRIP 50 mg/50mL 50 ML IV SCH ×4 (05:00→19:26)
[2017-01-02] MEDS: chlordiazePOXIDE HCL 25 MG CAP PO SCH ×4 (05:21→23:51)
[2017-01-02] MEDS: VANCOMYCIN HCL 125MG/5ML ORAL SOL PO SCH ×4 (05:21→21:47)
[2017-01-02] MEDS: metroNIDAZOLE 250MG/50 ML 50 ML IV SCH ×3 (05:21→21:47)
[2017-01-02] MEDS: PROPOFOL 100 ML IV SCH ×5 (06:00→19:30)
[2017-01-02] MEDS: SOD CHL 0.9%/ KCL 20MEQ 1,000 ML IV SCH ×3 (06:16→21:47)
[2017-01-02] MEDS: SODIUM CHLOR 0.9% PF (SALINE LOCK) 10ML VIAL IV SCH ×2 (09:41→21:47)
[2017-01-02] MEDS: PANTOPRAZOLE SODIUM 40 MG/10 ML VIAL IV SCH (10:10)
[2017-01-02] MEDS: THIAMINE HCL 100 MG/ML 2ML VIAL IV SCH (10:10)
[2017-01-02] MEDS: POTASSIUM CHL 10% (20 MEQ/15ML) ORAL SOLN GT SCH ×2 (10:11→21:47)
[2017-01-02] MEDS: VANCOMYCIN 1GM/250ML D5W 250 ML IV SCH ×3 (11:33→23:51)
[2017-01-02] MEDS: AZITHROMYCIN 500MG/D5W 250ML 250 ML IV SCH (11:34)
[2017-01-02] MEDS ORDERED: SODIUM CHLORIDE 0.9% 500 ML IV ONE (12:00)
[2017-01-02] MEDS: NOREPINEPHRINE BITARTRATE 250 ML IV SCH (14:46)
[2017-01-02] MEDS: fentaNYL Drip 2500mCg/250mlNS 250 ML IV SCH (23:51)
[2017-01-03] VITALS (95 sets, daily range): BP systolic 87–164; BP diastolic 37–169
[2017-01-03] MEDS: PROPOFOL 100 ML IV SCH ×4 (00:38→22:50)
[2017-01-03] MEDS: MIDAZOLAM DRIP 50 mg/50mL 50 ML IV SCH ×3 (00:39→13:18)
[2017-01-03] MEDS: SODIUM CHL 0.9% IV SCH ×3 (01:37→17:26)
[2017-01-03] MEDS: ACYCLOVIR IV SCH ×3 (01:37→17:26)
[2017-01-03] MEDS: PIPERACILLIN-TAZOB 3.375GM 100 ML IV SCH ×4 (02:39→21:00)
[2017-01-03 03:50] LABS: CONDITION Y; Hematocrit 24.9 % (41.0-53.0); Hemoglobin 8.6 g/dL (13.5-17.5); Mean Corpuscular Hemoglobin 31.4 pg (28.0-32.0); Mean Corpuscular Hgb Conc. 34.5 g/dL (32.0-36.0); Platelet Count (auto) 345 10^3/uL (140-450); Red Cell Distribution Width 16.2 % (11.6-16.0); SUSPECT SEE PRINTOUT
[2017-01-03 04:11] LABS: Albumin 1.9 g/dL (3.4-5.0); BUN/Creatinine Ratio 8.2; Bilirubin, Total 0.7 mg/dL (0.2-1.0); Calcium 7.7 mg/dL (8.5-10.1); Potassium 3.8 mmol/L (3.5-5.1); Total Protein 5.1 g/dL (6.4-8.2)
[2017-01-03 04:13] LABS: Promyelocytes % 0; Reactive Lymphocytes 0
[2017-01-03 05:28] LABS: Metamyelocytes % 1; Myelocytes % 4
[2017-01-03 05:30] LABS: Anisocytosis Moderate; Macrocytosis Slight; Platelet Estimate Adequate; Polychromasia Slight
[2017-01-03] MEDS: VANCOMYCIN HCL 125MG/5ML ORAL SOL PO SCH ×4 (06:22→22:00)
[2017-01-03] MEDS: VANCOMYCIN 1GM/250ML D5W 250 ML IV SCH ×3 (06:22→17:25)
[2017-01-03] MEDS: chlordiazePOXIDE HCL 25 MG CAP PO SCH ×3 (06:22→17:26)
[2017-01-03] MEDS: metroNIDAZOLE 250MG/50 ML 50 ML IV SCH ×3 (06:22→22:00)
[2017-01-03] MEDS: ACETAMINOPHEN 650 mg PER 20 mL UD GT PRN ×3 (06:38→18:58)
[2017-01-03 07:41] LABS: Allen Test Modified; Blood 02Sat 93.4 % (96-100); Blood COHb 0.7 % (0.5-1.5); Blood MetHb 0.3 % (0.0-1.5); HCO3 26.6 mmol/L (22-26.0); HHb 6.5 % (0.0-5.0); MODE VENT - A/C; O2Hb 92.5 % (94.0-97.0); PCO2 37.5 mmHg (35.0-45.0); PCO2(T) 39.2 mmHg (35.0-45.0); PO2 72.7 mmHg (80.0-100.0); PO2(T) 77.8 mmHg (80.0-100.0); Sample Type Arterial; pH 7.469 (7.350-7.450)
[2017-01-03] MEDS: SODIUM CHLOR 0.9% PF (SALINE LOCK) 10ML VIAL IV SCH ×2 (09:34→22:00)
[2017-01-03] MEDS: THIAMINE HCL 100 MG/ML 2ML VIAL IV SCH (09:34)
[2017-01-03] MEDS: PANTOPRAZOLE SODIUM 40 MG/10 ML VIAL IV SCH (09:34)
[2017-01-03] MEDS: POTASSIUM CHL 10% (20 MEQ/15ML) ORAL SOLN GT SCH ×2 (09:34→22:00)
[2017-01-03] MEDS: SOD CHL 0.9%/ KCL 20MEQ 1,000 ML IV SCH ×2 (09:49→20:00)
[2017-01-03] MEDS: NOREPINEPHRINE BITARTRATE 250 ML IV SCH (14:46)
[2017-01-03] MEDS: fentaNYL Drip 2500mCg/250mlNS 250 ML IV SCH (18:59)
[2017-01-03 21:59] LABS: Urine Bilirubin Negative (Negative); Urine Color Yellow (Yellow); Urine Glucose Normal (Normal); Urine Ketone Negative (Negative); Urine Nitrite Negative (Negative); Urine RBC 25 /hpf (0 - 3); Urine Urobilinogen Normal (Negative)
[2017-01-03 22:00] LABS: Urine Blood 1+ /uL (Negative)
[2017-01-03] MEDS: LORazepam 2MG/ML-1ML VIAL IV PRN (22:59)
[2017-01-04] VITALS (103 sets, daily range): BP systolic 88–142; BP diastolic 44–85
[2017-01-04] MEDS: VANCOMYCIN 1GM/250ML D5W 250 ML IV SCH ×5 (00:28→23:44)
[2017-01-04] MEDS: chlordiazePOXIDE HCL 25 MG CAP PO SCH ×5 (00:28→23:44)
[2017-01-04] MEDS ORDERED: ACETAMINOPHEN 650 mg PER 20 mL UD ONE (01:41)
[2017-01-04] MEDS: SODIUM CHL 0.9% IV SCH ×2 (02:11→11:20)
[2017-01-04] MEDS: ACYCLOVIR IV SCH ×2 (02:11→11:20)
[2017-01-04] MEDS: ACETAMINOPHEN 650 mg PER 20 mL UD GT PRN (02:11)
[2017-01-04] MEDS: MIDAZOLAM DRIP 50 mg/50mL 50 ML IV SCH ×4 (02:12→23:44)
[2017-01-04] MEDS: PIPERACILLIN-TAZOB 3.375GM 100 ML IV SCH ×4 (03:00→21:01)
[2017-01-04 04:02] LABS: Calcium 8.3 mg/dL (8.5-10.1); Potassium 4.3 mmol/L (3.5-5.1)
[2017-01-04 04:04] LABS: BUN/Creatinine Ratio 11.9
[2017-01-04] MEDS: SOD CHL 0.9%/ KCL 20MEQ 1,000 ML IV SCH ×2 (04:06→20:29)
[2017-01-04 04:43] LABS: CONDITION Y; Hematocrit 27.4 % (41.0-53.0); Hemoglobin 9.4 g/dL (13.5-17.5); Mean Corpuscular Hemoglobin 31.1 pg (28.0-32.0); Mean Corpuscular Hgb Conc. 34.3 g/dL (32.0-36.0); Mean Corpuscular Volume 90.7 fL (80.0-100.0); Mean Platelet Volume 7.1 fL (7.4-10.4); Platelet Count (auto) 439 10^3/uL (140-450); Red Cell Distribution Width 16.1 % (11.6-16.0); SUSPECT SEE PRINTOUT; White Blood Cell 19.4 10^3/uL (4.4-10.8)
[2017-01-04 04:47] LABS: Promyelocytes % 0; Reactive Lymphocytes 0
[2017-01-04 05:06] LABS: Metamyelocytes % 4; Myelocytes % 1
[2017-01-04 05:07] LABS: Anisocytosis Moderate; Macrocytosis Slight; Platelet Estimate Adequate; Polychromasia Slight
[2017-01-04] MEDS: metroNIDAZOLE 250MG/50 ML 50 ML IV SCH ×3 (06:02→21:53)
[2017-01-04] MEDS: VANCOMYCIN HCL 125MG/5ML ORAL SOL PO SCH ×4 (06:02→21:53)
[2017-01-04] MEDS: fentaNYL Drip 2500mCg/250mlNS 250 ML IV SCH (06:33)
[2017-01-04] MEDS: THIAMINE HCL 100 MG/ML 2ML VIAL IV SCH (10:17)
[2017-01-04] MEDS: POTASSIUM CHL 10% (20 MEQ/15ML) ORAL SOLN GT SCH ×2 (10:17→21:53)
[2017-01-04] MEDS: PANTOPRAZOLE SODIUM 40 MG/10 ML VIAL IV SCH (10:17)
[2017-01-04] MEDS: SODIUM CHLOR 0.9% PF (SALINE LOCK) 10ML VIAL IV SCH ×2 (10:18→21:53)
[2017-01-04] MEDS: PROPOFOL 100 ML IV SCH ×3 (10:18→22:04)
[2017-01-04] MEDS ORDERED: Isosource 1.5 Cal 1 Liter GT SCH (11:30)
[2017-01-04] MEDS: NOREPINEPHRINE BITARTRATE 250 ML IV SCH (20:28)
[2017-01-05] VITALS (103 sets, daily range): BP systolic 73–144; BP diastolic 5–75
[2017-01-05] MEDS: ACETAMINOPHEN 650 mg PER 20 mL UD GT PRN ×4 (01:25→19:37)
[2017-01-05] MEDS: SOD CHL 0.9%/ KCL 20MEQ 1,000 ML IV SCH ×3 (01:45→15:26)
[2017-01-05] MEDS: PIPERACILLIN-TAZOB 3.375GM 100 ML IV SCH ×4 (03:00→21:12)
[2017-01-05 03:47] LABS: CONDITION Y; DEFINITIVE SEE PRINTOUT; Hematocrit 24.8 % (41.0-53.0); Hemoglobin 8.4 g/dL (13.5-17.5); Mean Corpuscular Hemoglobin 31.5 pg (28.0-32.0); Mean Corpuscular Volume 92.6 fL (80.0-100.0); Mean Platelet Volume 6.8 fL (7.4-10.4); Platelet Count (auto) 438 10^3/uL (140-450); Red Cell Distribution Width 15.9 % (11.6-16.0); SUSPECT SEE PRINTOUT; White Blood Cell 15.4 10^3/uL (4.4-10.8)
[2017-01-05 04:01] LABS: Albumin 1.7 g/dL (3.4-5.0); BUN/Creatinine Ratio 11.4; Calcium 8.3 mg/dL (8.5-10.1); Potassium 3.7 mmol/L (3.5-5.1)
[2017-01-05 04:03] LABS: Bilirubin, Total 0.6 mg/dL (0.2-1.0); Total Protein 5.8 g/dL (6.4-8.2)
[2017-01-05] MEDS: MIDAZOLAM DRIP 50 mg/50mL 50 ML IV SCH ×3 (04:06→21:13)
[2017-01-05 04:07] LABS: Promyelocytes % 0; Reactive Lymphocytes 0
[2017-01-05 05:40] LABS: Anisocytosis Moderate; Hypersegmented Neutrophils Present; Metamyelocytes % 1; Myelocytes % 1; Platelet Estimate Adequate
[2017-01-05 05:41] LABS: Macrocytosis Slight; Polychromasia Slight
[2017-01-05] MEDS: metroNIDAZOLE 250MG/50 ML 50 ML IV SCH ×3 (06:20→21:32)
[2017-01-05] MEDS: VANCOMYCIN 1GM/250ML D5W 250 ML IV SCH ×3 (06:20→18:21)
[2017-01-05] MEDS: VANCOMYCIN HCL 125MG/5ML ORAL SOL PO SCH ×4 (06:21→21:31)
[2017-01-05] MEDS: PROPOFOL 100 ML IV SCH ×4 (06:21→21:13)
[2017-01-05] MEDS: chlordiazePOXIDE HCL 25 MG CAP PO SCH ×3 (06:21→18:21)
[2017-01-05] MEDS: fentaNYL Drip 2500mCg/250mlNS 250 ML IV SCH ×2 (06:50→17:16)
[2017-01-05 07:23] LABS: Allen Test Modified; Base Excess 5.3 mmol/L (-2.0-2.0); Blood 02Sat 91.5 % (96-100); Blood COHb 0.4 % (0.5-1.5); Blood MetHb 0.1 % (0.0-1.5); HCO3 30.3 mmol/L (22-26.0); HHb 8.5 % (0.0-5.0); MODE VENT - A/C; PCO2 46.7 mmHg (35.0-45.0); PCO2(T) 48.8 mmHg (35.0-45.0); PO2 67.3 mmHg (80.0-100.0); Sample Type Arterial
[2017-01-05] MEDS ORDERED: LEVOFLOXACIN 750MG 150 ML IV ONE (10:00)
[2017-01-05] MEDS: POTASSIUM CHL 10% (20 MEQ/15ML) ORAL SOLN GT SCH ×2 (10:14→21:32)
[2017-01-05] MEDS: THIAMINE HCL 100 MG/ML 2ML VIAL IV SCH (10:14)
[2017-01-05] MEDS: PANTOPRAZOLE SODIUM 40 MG/10 ML VIAL IV SCH (10:14)
[2017-01-05] MEDS: SODIUM CHLOR 0.9% PF (SALINE LOCK) 10ML VIAL IV SCH ×2 (10:15→21:31)
[2017-01-05] MEDS: NOREPINEPHRINE BITARTRATE 250 ML IV SCH (14:46)
[2017-01-06] VITALS (103 sets, daily range): BP systolic 91–160; BP diastolic 40–101
[2017-01-06] MEDS: VANCOMYCIN 1GM/250ML D5W 250 ML IV SCH ×4 (00:44→17:59)
[2017-01-06] MEDS: chlordiazePOXIDE HCL 25 MG CAP PO SCH ×4 (00:44→17:59)
[2017-01-06] MEDS: SOD CHL 0.9%/ KCL 20MEQ 1,000 ML IV SCH ×2 (01:30→09:46)
[2017-01-06] MEDS: PROPOFOL 100 ML IV SCH ×4 (04:41→20:18)
[2017-01-06] MEDS: PIPERACILLIN-TAZOB 3.375GM 100 ML IV SCH ×4 (04:42→21:32)
[2017-01-06] MEDS: MIDAZOLAM DRIP 50 mg/50mL 50 ML IV SCH ×2 (04:42→08:57)
[2017-01-06] MEDS: ACETAMINOPHEN 650 mg PER 20 mL UD GT PRN ×3 (04:49→18:00)
[2017-01-06 05:14] LABS: Basophils # (auto) 0 uL; Basophils % (auto) 0.2 % (0.0-2.0); CONDITION Y; Eosinophils # (auto) 0 uL; Eosinophils % (auto) 0.1 % (0.0-7.0); Hematocrit 26.1 % (41.0-53.0); Hemoglobin 8.9 g/dL (13.5-17.5); Lymphocytes # (auto) 1.2 uL; Lymphocytes % (auto) 7.7 % (10.0-50.0); Mean Corpuscular Hgb Conc. 33.9 g/dL (32.0-36.0); Mean Corpuscular Volume 91.4 fL (80.0-100.0); Mean Platelet Volume 6.8 fL (7.4-10.4); Monocytes # (auto) 0.9 uL; Monocytes % (auto) 5.5 % (0.0-12.0); Neutrophils # (auto) 13.5 uL; Neutrophils % (auto) 86.5 % (37.0-80.0); Platelet Count (auto) 523 10^3/uL (140-450); Red Cell Distribution Width 15.3 % (11.6-16.0); White Blood Cell 15.6 10^3/uL (4.4-10.8)
[2017-01-06 05:35] LABS: Albumin 1.9 g/dL (3.4-5.0); BUN/Creatinine Ratio 7.5; Bilirubin, Total 0.5 mg/dL (0.2-1.0); Calcium 8.8 mg/dL (8.5-10.1); Potassium 4.4 mmol/L (3.5-5.1); Total Protein 6.5 g/dL (6.4-8.2)
[2017-01-06] MEDS: fentaNYL Drip 2500mCg/250mlNS 250 ML IV SCH ×2 (05:39→20:17)
[2017-01-06] MEDS: metroNIDAZOLE 250MG/50 ML 50 ML IV SCH (05:56)
[2017-01-06] MEDS: VANCOMYCIN HCL 125MG/5ML ORAL SOL PO SCH ×4 (06:05→22:22)
[2017-01-06] MEDS ORDERED: VANCOMYCIN 1GM/250ML D5W 250 ML IV ONE (08:29)
[2017-01-06] MEDS: THIAMINE HCL 100 MG/ML 2ML VIAL IV SCH (09:30)
[2017-01-06] MEDS: SODIUM CHLOR 0.9% PF (SALINE LOCK) 10ML VIAL IV SCH ×2 (09:30→22:21)
[2017-01-06] MEDS: PANTOPRAZOLE SODIUM 40 MG/10 ML VIAL IV SCH (09:30)
[2017-01-06] MEDS: POTASSIUM CHL 10% (20 MEQ/15ML) ORAL SOLN GT SCH ×2 (09:30→22:21)
[2017-01-06] MEDS: ENOXAPARIN SOD 40 MG/0.4 ML SYRINGE SC SCH (10:00)
[2017-01-06] MEDS ORDERED: ENOXAPARIN SOD 40 MG/0.4 ML SYRINGE SC SCH (10:00)
[2017-01-06] MEDS: FLUCONAZOLE 200MG/100ML 100 ML IV SCH ×2 (10:40→10:49)
[2017-01-06] MEDS: NOREPINEPHRINE BITARTRATE 250 ML IV SCH (14:46)
[2017-01-07] VITALS (106 sets, daily range): BP systolic 110–157; BP diastolic 40–93
[2017-01-07] MEDS: chlordiazePOXIDE HCL 25 MG CAP PO SCH ×5 (00:08→23:55)
[2017-01-07] MEDS: VANCOMYCIN 1GM/250ML D5W 250 ML IV SCH ×2 (00:09→05:31)
[2017-01-07] MEDS: PROPOFOL 100 ML IV SCH ×5 (00:24→20:22)
[2017-01-07] MEDS: PIPERACILLIN-TAZOB 3.375GM 100 ML IV SCH ×2 (03:51→09:06)
[2017-01-07 04:39] LABS: Basophils # (auto) 0 uL; Basophils % (auto) 0.2 % (0.0-2.0); CONDITION Y; Eosinophils # (auto) 0.1 uL; Eosinophils % (auto) 0.4 % (0.0-7.0); Hemoglobin 8.8 g/dL (13.5-17.5); Lymphocytes % (auto) 7.4 % (10.0-50.0); Mean Corpuscular Hemoglobin 31.1 pg (28.0-32.0); Mean Corpuscular Hgb Conc. 33.8 g/dL (32.0-36.0); Mean Platelet Volume 6.8 fL (7.4-10.4); Monocytes # (auto) 0.8 uL; Monocytes % (auto) 5.9 % (0.0-12.0); Neutrophils # (auto) 11.9 uL; Neutrophils % (auto) 86.1 % (37.0-80.0); Platelet Count (auto) 551 10^3/uL (140-450); Red Cell Distribution Width 15.3 % (11.6-16.0); White Blood Cell 13.8 10^3/uL (4.4-10.8)
[2017-01-07 05:04] LABS: Albumin 1.9 g/dL (3.4-5.0); Calcium 8.8 mg/dL (8.5-10.1); Potassium 3.9 mmol/L (3.5-5.1)
[2017-01-07 05:06] LABS: BUN/Creatinine Ratio 9.4
[2017-01-07 05:08] LABS: Bilirubin, Total 0.5 mg/dL (0.2-1.0); Total Protein 6.6 g/dL (6.4-8.2)
[2017-01-07] MEDS: SOD CHL 0.9%/ KCL 20MEQ 1,000 ML IV SCH ×2 (05:10→11:28)
[2017-01-07] MEDS: VANCOMYCIN HCL 125MG/5ML ORAL SOL PO SCH ×4 (05:31→22:17)
[2017-01-07 09:10] LABS: Allen Test Modified; Blood 02Sat 94.8 % (96-100); Blood COHb 0.3 % (0.5-1.5); Blood MetHb 0.1 % (0.0-1.5); HCO3 31.4 mmol/L (22-26.0); HHb 5.2 % (0.0-5.0); MODE VENT - A/C; O2Hb 94.4 % (94.0-97.0); PCO2 49.6 mmHg (35.0-45.0); PCO2(T) 49.6 mmHg (35.0-45.0); Sample Type Arterial; pH 7.419 (7.350-7.450)
[2017-01-07] MEDS: ENOXAPARIN SOD 40 MG/0.4 ML SYRINGE SC SCH (10:00)
[2017-01-07] MEDS: PANTOPRAZOLE SODIUM 40 MG/10 ML VIAL IV SCH (10:00)
[2017-01-07] MEDS: POTASSIUM CHL 10% (20 MEQ/15ML) ORAL SOLN GT SCH ×2 (10:00→22:16)
[2017-01-07] MEDS: THIAMINE HCL 100 MG/ML 2ML VIAL IV SCH (10:00)
[2017-01-07] MEDS: FLUCONAZOLE 200MG/100ML 100 ML IV SCH ×2 (10:00→11:28)
[2017-01-07] MEDS: SODIUM CHLOR 0.9% PF (SALINE LOCK) 10ML VIAL IV SCH ×2 (10:00→22:17)
[2017-01-07] MEDS: fentaNYL Drip 2500mCg/250mlNS 250 ML IV SCH (11:47)
[2017-01-07] MEDS: NOREPINEPHRINE BITARTRATE 250 ML IV SCH (14:46)
[2017-01-07] MEDS ORDERED: CLINIMIX PER PHARMACY 0 ML IV SCH (18:30)
[2017-01-07] MEDS ORDERED: AMINO ACID INFUSION IN D10W 1,000 ML IV ONE (20:00)
[2017-01-07] MEDS: InsuLIN REG 1unit/0.01ml Soln (100units/ml) SC SCH (23:55)
[2017-01-07] MEDS: ACCU-CHEK COMFORT CURVE STRIP VI SCH (23:55)
[2017-01-08] VITALS (103 sets, daily range): BP systolic 112–162; BP diastolic 50–109
[2017-01-08] MEDS ORDERED: DEXTROSE (50%) 50ML SYRG IV SCH
[2017-01-08] MEDS: PROPOFOL 100 ML IV SCH ×6 (00:01→22:24)
[2017-01-08 03:43] LABS: Basophils # (auto) 0 uL; Basophils % (auto) 0.2 % (0.0-2.0); CONDITION Y; Eosinophils # (auto) 0 uL; Eosinophils % (auto) 0.4 % (0.0-7.0); Hematocrit 25.1 % (41.0-53.0); Hemoglobin 8.7 g/dL (13.5-17.5); Lymphocytes # (auto) 1.2 uL; Lymphocytes % (auto) 9.7 % (10.0-50.0); Mean Corpuscular Hemoglobin 31.6 pg (28.0-32.0); Mean Corpuscular Hgb Conc. 34.5 g/dL (32.0-36.0); Mean Corpuscular Volume 91.7 fL (80.0-100.0); Mean Platelet Volume 6.3 fL (7.4-10.4); Monocytes # (auto) 0.9 uL; Monocytes % (auto) 7.8 % (0.0-12.0); Neutrophils # (auto) 9.7 uL; Neutrophils % (auto) 81.9 % (37.0-80.0); Platelet Count (auto) 594 10^3/uL (140-450); Red Cell Distribution Width 15.6 % (11.6-16.0); White Blood Cell 11.9 10^3/uL (4.4-10.8)
[2017-01-08] MEDS: fentaNYL Drip 2500mCg/250mlNS 250 ML IV SCH (03:52)
[2017-01-08 04:10] LABS: Albumin 1.9 g/dL (3.4-5.0); BUN/Creatinine Ratio 12.1; Bilirubin, Total 0.4 mg/dL (0.2-1.0); Calcium 9.2 mg/dL (8.5-10.1); Magnesium 1.7 mg/dL (1.6-2.6); Phosphorus 4.5 mg/dL (2.5-4.90); Potassium 3.6 mmol/L (3.5-5.1); Total Protein 6.7 g/dL (6.4-8.2)
[2017-01-08] MEDS: MIDAZOLAM DRIP 50 mg/50mL 50 ML IV SCH (05:11)
[2017-01-08] MEDS: InsuLIN REG 1unit/0.01ml Soln (100units/ml) SC SCH ×4 (06:00→23:35)
[2017-01-08] MEDS: chlordiazePOXIDE HCL 25 MG CAP PO SCH ×4 (06:10→23:35)
[2017-01-08] MEDS: ACCU-CHEK COMFORT CURVE STRIP VI SCH ×4 (06:11→23:35)
[2017-01-08] MEDS: VANCOMYCIN HCL 125MG/5ML ORAL SOL PO SCH ×4 (06:11→22:00)
[2017-01-08] MEDS: SOD CHL 0.9%/ KCL 20MEQ 1,000 ML IV SCH ×3 (06:18→08:54)
[2017-01-08] MEDS: FLUCONAZOLE 200MG/100ML 100 ML IV SCH ×2 (10:14→11:00)
[2017-01-08] MEDS: PANTOPRAZOLE SODIUM 40 MG/10 ML VIAL IV SCH (10:14)
[2017-01-08] MEDS: THIAMINE HCL 100 MG/ML 2ML VIAL IV SCH (10:15)
[2017-01-08] MEDS: ENOXAPARIN SOD 40 MG/0.4 ML SYRINGE SC SCH (10:15)
[2017-01-08] MEDS: SODIUM CHLOR 0.9% PF (SALINE LOCK) 10ML VIAL IV SCH ×2 (10:15→21:59)
[2017-01-08] MEDS: POTASSIUM CHL 10% (20 MEQ/15ML) ORAL SOLN GT SCH ×2 (10:15→21:59)
[2017-01-08] MEDS: ACETAMINOPHEN 650 mg PER 20 mL UD GT PRN (13:20)
[2017-01-08] MEDS: NOREPINEPHRINE BITARTRATE 250 ML IV SCH (14:46)
[2017-01-08] MEDS ORDERED: CLINIMIX PER PHARMACY IV NR ×6 (20:00)
[2017-01-09] VITALS (97 sets, daily range): BP systolic 107–166; BP diastolic 49–119
[2017-01-09] MEDS: SOD CHL 0.9%/ KCL 20MEQ 1,000 ML IV SCH ×2 (01:49→15:45)
[2017-01-09] MEDS: PROPOFOL 100 ML IV SCH (01:50)
[2017-01-09 04:04] LABS: Basophils # (auto) 0.1 uL; Basophils % (auto) 0.5 % (0.0-2.0); CONDITION Y; Eosinophils # (auto) 0 uL; Eosinophils % (auto) 0.3 % (0.0-7.0); Hematocrit 25.6 % (41.0-53.0); Hemoglobin 8.8 g/dL (13.5-17.5); Lymphocytes # (auto) 1.4 uL; Lymphocytes % (auto) 11.1 % (10.0-50.0); Mean Corpuscular Hemoglobin 31.6 pg (28.0-32.0); Mean Corpuscular Hgb Conc. 34.4 g/dL (32.0-36.0); Mean Corpuscular Volume 91.8 fL (80.0-100.0); Mean Platelet Volume 6.4 fL (7.4-10.4); Monocytes # (auto) 0.9 uL; Monocytes % (auto) 7.3 % (0.0-12.0); Neutrophils # (auto) 10.1 uL; Neutrophils % (auto) 80.8 % (37.0-80.0); Platelet Count (auto) 717 10^3/uL (140-450); Red Cell Distribution Width 15.6 % (11.6-16.0); White Blood Cell 12.4 10^3/uL (4.4-10.8)
[2017-01-09 04:30] LABS: Albumin 2.1 g/dL (3.4-5.0); BUN/Creatinine Ratio 11.8; Bilirubin, Total 0.5 mg/dL (0.2-1.0); Calcium 9.2 mg/dL (8.5-10.1); Magnesium 1.9 mg/dL (1.6-2.6); Phosphorus 4.2 mg/dL (2.5-4.90); Potassium 3.8 mmol/L (3.5-5.1); Total Protein 7.6 g/dL (6.4-8.2)
[2017-01-09] MEDS: MIDAZOLAM DRIP 50 mg/50mL 50 ML IV SCH (05:11)
[2017-01-09] MEDS: InsuLIN REG 1unit/0.01ml Soln (100units/ml) SC SCH ×3 (06:00→17:19)
[2017-01-09] MEDS: VANCOMYCIN HCL 125MG/5ML ORAL SOL PO SCH ×4 (06:00→22:26)
[2017-01-09] MEDS: ACCU-CHEK COMFORT CURVE STRIP VI SCH ×3 (06:00→17:19)
[2017-01-09] MEDS: chlordiazePOXIDE HCL 25 MG CAP PO SCH ×4 (06:00→23:42)
[2017-01-09 08:42] LABS: Allen Test Modified; Blood 02Sat 95.8 % (96-100); Blood COHb 0.3 % (0.5-1.5); Blood MetHb 0.1 % (0.0-1.5); HCO3 27.5 mmol/L (22-26.0); HHb 4.2 % (0.0-5.0); MODE VENT - A/C; O2Hb 95.4 % (94.0-97.0); PCO2 41.7 mmHg (35.0-45.0); PCO2(T) 41.7 mmHg (35.0-45.0); Sample Type Arterial; pH 7.437 (7.350-7.450)
[2017-01-09 10:28] LABS: Allen Test Yes; Base Excess 3.2 mmol/L (-2.0-2.0); Blood 02Sat 95.8 % (96-100); Blood COHb 0.3 % (0.5-1.5); Blood MetHb 0.1 % (0.0-1.5); HCO3 27.2 mmol/L (22-26.0); HHb 4.2 % (0.0-5.0); MODE VENT - CPAP; O2Hb 95.4 % (94.0-97.0); PCO2 39.1 mmHg (35.0-45.0); PO2(T) 92.9 mmHg (80.0-100.0); Pressure Support 8; Sample Type Arterial; Spont Vt 800
[2017-01-09] MEDS: PANTOPRAZOLE SODIUM 40 MG/10 ML VIAL IV SCH (11:02)
[2017-01-09] MEDS: FLUCONAZOLE 200MG/100ML 100 ML IV SCH ×2 (11:02→11:15)
[2017-01-09] MEDS: THIAMINE HCL 100 MG/ML 2ML VIAL IV SCH (11:02)
[2017-01-09] MEDS: ENOXAPARIN SOD 40 MG/0.4 ML SYRINGE SC SCH (11:03)
[2017-01-09] MEDS: SODIUM CHLOR 0.9% PF (SALINE LOCK) 10ML VIAL IV SCH ×2 (11:03→22:26)
[2017-01-09] MEDS: POTASSIUM CHL 10% (20 MEQ/15ML) ORAL SOLN GT SCH ×2 (11:04→22:26)
[2017-01-09 11:06] LABS: CAP Mandated Reflex to Culture Not Indicated (.)
[2017-01-09] MEDS: ACETAMINOPHEN 650 mg PER 20 mL UD GT PRN ×3 (11:06→23:42)
[2017-01-09] MEDS: NOREPINEPHRINE BITARTRATE 250 ML IV SCH (14:46)
[2017-01-09] MEDS ORDERED: PHENYLEPHRINE INJ 20 MG in SODIUM CHL 0.9% 250 ML IV SCH (18:30)
[2017-01-09] MEDS ORDERED: CLINIMIX PER PHARMACY IV NR ×6 (20:00)
[2017-01-09] MEDS: LORazepam 2MG/ML-1ML VIAL IV PRN (20:16)
[2017-01-10] VITALS (89 sets, daily range): BP systolic 85–159; BP diastolic 43–108
[2017-01-10] MEDS: fentaNYL Drip 2500mCg/250mlNS 250 ML IV SCH (00:21)
[2017-01-10] MEDS: SOD CHL 0.9%/ KCL 20MEQ 1,000 ML IV SCH ×3 (02:53→22:49)
[2017-01-10] MEDS: LORazepam 2MG/ML-1ML VIAL IV PRN (04:32)
[2017-01-10] MEDS: MIDAZOLAM DRIP 50 mg/50mL 50 ML IV SCH (05:03)
[2017-01-10] MEDS: PROPOFOL 100 ML IV SCH (05:03)
[2017-01-10 05:08] LABS: Albumin 2.3 g/dL (3.4-5.0); BUN/Creatinine Ratio 11.9; Bilirubin, Total 0.5 mg/dL (0.2-1.0); Calcium 9.3 mg/dL (8.5-10.1); Magnesium 2.1 mg/dL (1.6-2.6); Phosphorus 4.5 mg/dL (2.5-4.90); Total Protein 8.1 g/dL (6.4-8.2)
[2017-01-10] MEDS: InsuLIN REG 1unit/0.01ml Soln (100units/ml) SC SCH ×4 (06:00→18:00)
[2017-01-10] MEDS: ACCU-CHEK COMFORT CURVE STRIP VI SCH ×4 (06:00→18:22)
[2017-01-10] MEDS: chlordiazePOXIDE HCL 25 MG CAP PO SCH ×3 (06:00→18:22)
[2017-01-10] MEDS: VANCOMYCIN HCL 125MG/5ML ORAL SOL PO SCH ×4 (06:30→22:00)
[2017-01-10] MEDS: ACETAMINOPHEN 650 mg PER 20 mL UD GT PRN (06:45)
[2017-01-10] MEDS: FLUCONAZOLE 200MG/100ML 100 ML IV SCH ×2 (13:30→13:31)
[2017-01-10] MEDS: PANTOPRAZOLE SODIUM 40 MG/10 ML VIAL IV SCH (13:31)
[2017-01-10] MEDS: SODIUM CHLOR 0.9% PF (SALINE LOCK) 10ML VIAL IV SCH (13:32)
[2017-01-10] MEDS: THIAMINE HCL 100 MG/ML 2ML VIAL IV SCH (13:32)
[2017-01-10] MEDS: ENOXAPARIN SOD 40 MG/0.4 ML SYRINGE SC SCH (13:32)
[2017-01-10] MEDS: POTASSIUM CHL 10% (20 MEQ/15ML) ORAL SOLN GT SCH (13:33)
[2017-01-10] MEDS: NOREPINEPHRINE BITARTRATE 250 ML IV SCH (14:46)
[2017-01-10] MEDS ORDERED: VANCOMYCIN PER PHARMACY 0 MG IV SCH (18:15)
[2017-01-10] MEDS ORDERED: CLINIMIX PER PHARMACY IV NR ×6 (20:00)
[2017-01-10] MEDS: VANCOMYCIN 1GM/250ML D5W 250 ML IV SCH (20:10)
[2017-01-11] VITALS (49 sets, daily range): BP systolic 99–153; BP diastolic 54–117
[2017-01-11] MEDS: HALOPERIDOL LACTATE 5 MG/ML INJ VIAL IM PRN (00:07)
[2017-01-11] MEDS: ACCU-CHEK COMFORT CURVE STRIP VI SCH ×4 (00:13→18:01)
[2017-01-11] MEDS: VANCOMYCIN 1GM/250ML D5W 250 ML IV SCH ×3 (03:23→21:20)
[2017-01-11 04:24] LABS: Albumin 2.4 g/dL (3.4-5.0); BUN/Creatinine Ratio 13.5; Bilirubin, Total 0.4 mg/dL (0.2-1.0); Magnesium 1.9 mg/dL (1.6-2.6); Phosphorus 4.3 mg/dL (2.5-4.90); Potassium 3.3 mmol/L (3.5-5.1)
[2017-01-11] MEDS: VANCOMYCIN HCL 125MG/5ML ORAL SOL PO SCH ×4 (06:00→21:28)
[2017-01-11] MEDS: InsuLIN REG 1unit/0.01ml Soln (100units/ml) SC SCH ×4 (06:59→18:00)
[2017-01-11] MEDS: SOD CHL 0.9%/ KCL 20MEQ 1,000 ML IV SCH ×2 (08:13→17:45)
[2017-01-11] MEDS: POTASSIUM CHL 20MEQ/100ML 100 ML IV SCH ×2 (08:13→09:25)
[2017-01-11] MEDS: FLUCONAZOLE 200MG/100ML 100 ML IV SCH ×2 (09:25→10:44)
[2017-01-11] MEDS: ENOXAPARIN SOD 40 MG/0.4 ML SYRINGE SC SCH (09:25)
[2017-01-11] MEDS ORDERED: ONDANSETRON HCL 4 MG/2 ML VIAL IV PRN (09:30)
[2017-01-11] MEDS ORDERED: MORPHINE SULF INJ 2 MG/ML SYRINGE 1ML IV PRN (09:30)
[2017-01-11] MEDS ORDERED: NITROGLYCERIN 0.4 MG SL TAB SL PRN (09:30)
[2017-01-11] MEDS ORDERED: ACETAMINOPHEN 650 MG RECT SUPP PR PRN (09:30)
[2017-01-11] MEDS ORDERED: HALOPERIDOL LACTATE 5 MG/ML INJ VIAL IM PRN (09:30)
[2017-01-11] MEDS ORDERED: PIPERACILLIN-TAZO 4.5GM 100 ML IV SCH (12:00)
[2017-01-11] MEDS: CeftoloZANE-TAZOB 1g/0.5g in D5W 5% 100 ML IV SCH ×2 (14:00→21:21)
[2017-01-11] MEDS ORDERED: cefTAZidime 2 GM in D5W 5% 100 ML IV SCH (14:00)
[2017-01-11] MEDS ORDERED: CLINIMIX PER PHARMACY IV NR ×6 (20:00)
[2017-01-12] VITALS: BP 99/60
[2017-01-12] MEDS: VANCOMYCIN 1,250 MG in D5W 5% 250 ML IV SCH ×3 (02:53→18:34)
[2017-01-12 04:00] VITALS: BP 125/75
[2017-01-12] MEDS: CeftoloZANE-TAZOB 1g/0.5g in D5W 5% 100 ML IV SCH ×3 (05:52→22:11)
[2017-01-12] MEDS: VANCOMYCIN HCL 125MG/5ML ORAL SOL PO SCH ×4 (05:53→22:11)
[2017-01-12] MEDS: InsuLIN REG 1unit/0.01ml Soln (100units/ml) SC SCH ×4 (06:00→18:00)
[2017-01-12] MEDS: ACCU-CHEK COMFORT CURVE STRIP VI SCH ×4 (06:12→18:00)
[2017-01-12 06:56] LABS: Basophils # (auto) 0.1 uL; Basophils % (auto) 0.7 % (0.0-2.0); CONDITION Y; DEFINITIVE SEE PRINTOUT; Eosinophils # (auto) 0.1 uL; Eosinophils % (auto) 1.3 % (0.0-7.0); Hematocrit 24.8 % (41.0-53.0); Hemoglobin 8.4 g/dL (13.5-17.5); Lymphocytes # (auto) 1.2 uL; Lymphocytes % (auto) 10.1 % (10.0-50.0); Mean Corpuscular Hemoglobin 31.3 pg (28.0-32.0); Mean Corpuscular Hgb Conc. 34.1 g/dL (32.0-36.0); Mean Corpuscular Volume 91.9 fL (80.0-100.0); Mean Platelet Volume 6.2 fL (7.4-10.4); Monocytes % (auto) 8.3 % (0.0-12.0); Neutrophils # (auto) 9.5 uL; Neutrophils % (auto) 79.6 % (37.0-80.0); Red Cell Distribution Width 15.9 % (11.6-16.0); White Blood Cell 11.9 10^3/uL (4.4-10.8)
[2017-01-12 07:19] LABS: Albumin 2.4 g/dL (3.4-5.0); Bilirubin, Total 0.4 mg/dL (0.2-1.0); Calcium 8.9 mg/dL (8.5-10.1); Magnesium 2.1 mg/dL (1.6-2.6); Phosphorus 3.2 mg/dL (2.5-4.90); Potassium 3.6 mmol/L (3.5-5.1); Total Protein 7.5 g/dL (6.4-8.2)
[2017-01-12 07:47] LABS: Platelet Count (auto) 764 10^3/uL (140-450)
[2017-01-12 08:00] VITALS: BP 112/77
[2017-01-12] MEDS: SOD CHL 0.9%/ KCL 20MEQ 1,000 ML IV SCH ×3 (11:02→23:40)
[2017-01-12] MEDS: FLUCONAZOLE 200MG/100ML 100 ML IV SCH ×2 (11:02→11:26)
[2017-01-12] MEDS: ENOXAPARIN SOD 40 MG/0.4 ML SYRINGE SC SCH (11:02)
[2017-01-12 12:00] VITALS: BP 119/73
[2017-01-12 16:00] VITALS: BP 105/53
[2017-01-12 20:00] VITALS: BP 117/64
[2017-01-12] MEDS ORDERED: CLINIMIX PER PHARMACY IV NR ×7 (20:00)
[2017-01-13] VITALS: BP 108/68
[2017-01-13] MEDS: ACCU-CHEK COMFORT CURVE STRIP VI SCH ×3 (00:11→11:34)
[2017-01-13] MEDS: VANCOMYCIN 1,250 MG in D5W 5% 250 ML IV SCH ×3 (03:16→19:17)
[2017-01-13 04:00] VITALS: BP 121/68
[2017-01-13] MEDS: CeftoloZANE-TAZOB 1g/0.5g in D5W 5% 100 ML IV SCH ×3 (05:22→22:16)
[2017-01-13] MEDS: VANCOMYCIN HCL 125MG/5ML ORAL SOL PO SCH ×4 (05:22→22:16)
[2017-01-13 05:57] LABS: Basophils # (auto) 0.1 uL; Basophils % (auto) 1.1 % (0.0-2.0); CONDITION Y; DEFINITIVE SEE PRINTOUT; Eosinophils # (auto) 0.2 uL; Eosinophils % (auto) 2.3 % (0.0-7.0); Hematocrit 25.3 % (41.0-53.0); Hemoglobin 8.4 g/dL (13.5-17.5); Lymphocytes # (auto) 1.6 uL; Lymphocytes % (auto) 15.8 % (10.0-50.0); Mean Corpuscular Hemoglobin 30.8 pg (28.0-32.0); Mean Corpuscular Hgb Conc. 33.4 g/dL (32.0-36.0); Mean Corpuscular Volume 92.3 fL (80.0-100.0); Mean Platelet Volume 6.3 fL (7.4-10.4); Monocytes # (auto) 1.1 uL; Monocytes % (auto) 11.3 % (0.0-12.0); Neutrophils # (auto) 6.9 uL; Neutrophils % (auto) 69.5 % (37.0-80.0); Platelet Count (auto) 714 10^3/uL (140-450); Red Cell Distribution Width 15.9 % (11.6-16.0); White Blood Cell 9.9 10^3/uL (4.4-10.8)
[2017-01-13] MEDS: InsuLIN REG 1unit/0.01ml Soln (100units/ml) SC SCH ×3 (06:00→11:34)
[2017-01-13 06:29] LABS: Albumin 2.4 g/dL (3.4-5.0); BUN/Creatinine Ratio 14.9; Bilirubin, Total 0.4 mg/dL (0.2-1.0); Magnesium 2.1 mg/dL (1.6-2.6); Phosphorus 4.6 mg/dL (2.5-4.90); Potassium 3.6 mmol/L (3.5-5.1); Total Protein 7.6 g/dL (6.4-8.2)
[2017-01-13 08:00] VITALS: BP 119/67
[2017-01-13] MEDS: SOD CHL 0.9%/ KCL 20MEQ 1,000 ML IV SCH ×2 (09:45→19:59)
[2017-01-13] MEDS: ENOXAPARIN SOD 40 MG/0.4 ML SYRINGE SC SCH (10:25)
[2017-01-13] MEDS: FLUCONAZOLE 200MG/100ML 100 ML IV SCH ×2 (10:25→11:00)
[2017-01-13 12:00] VITALS: BP 120/65
[2017-01-13] MEDS: ACETAMINOPHEN 325 MG TAB PO PRN (13:05)
[2017-01-13 16:00] VITALS: BP 108/58
[2017-01-13 20:00] VITALS: BP 108/58
[2017-01-13] MEDS ORDERED: CLINIMIX PER PHARMACY IV NR ×6 (20:00)
[2017-01-14] VITALS: BP 116/65
[2017-01-14] MEDS: VANCOMYCIN 1,250 MG in D5W 5% 250 ML IV SCH ×3 (03:10→18:28)
[2017-01-14 04:00] VITALS: BP 110/67
[2017-01-14] MEDS: SOD CHL 0.9%/ KCL 20MEQ 1,000 ML IV SCH (05:45)
[2017-01-14] MEDS: CeftoloZANE-TAZOB 1g/0.5g in D5W 5% 100 ML IV SCH ×3 (06:00→22:02)
[2017-01-14 06:33] LABS: Basophils # (auto) 0.1 uL; Basophils % (auto) 1.2 % (0.0-2.0); CONDITION Y; Eosinophils # (auto) 0.4 uL; Eosinophils % (auto) 3.2 % (0.0-7.0); Hematocrit 26.4 % (41.0-53.0); Hemoglobin 8.8 g/dL (13.5-17.5); Lymphocytes # (auto) 1.9 uL; Lymphocytes % (auto) 16.7 % (10.0-50.0); Mean Corpuscular Hgb Conc. 33.4 g/dL (32.0-36.0); Mean Corpuscular Volume 92.9 fL (80.0-100.0); Mean Platelet Volume 6.4 fL (7.4-10.4); Monocytes # (auto) 0.9 uL; Neutrophils # (auto) 7.9 uL; Neutrophils % (auto) 70.9 % (37.0-80.0); Platelet Count (auto) 730 10^3/uL (140-450); Red Cell Distribution Width 16.7 % (11.6-16.0); White Blood Cell 11.2 10^3/uL (4.4-10.8)
[2017-01-14 06:55] LABS: Albumin 2.5 g/dL (3.4-5.0); BUN/Creatinine Ratio 12.3; Bilirubin, Total 0.4 mg/dL (0.2-1.0); Calcium 9.2 mg/dL (8.5-10.1); Magnesium 1.9 mg/dL (1.6-2.6); Phosphorus 4.3 mg/dL (2.5-4.90); Potassium 3.7 mmol/L (3.5-5.1)
[2017-01-14] MEDS: VANCOMYCIN HCL 125MG/5ML ORAL SOL PO SCH ×4 (07:20→22:02)
[2017-01-14 08:07] VITALS: BP 112/68
[2017-01-14] MEDS: ENOXAPARIN SOD 40 MG/0.4 ML SYRINGE SC SCH (10:24)
[2017-01-14] MEDS: FLUCONAZOLE 200MG/100ML 100 ML IV SCH ×2 (10:24→11:00)
[2017-01-14 12:00] VITALS: BP 114/61
[2017-01-14 16:00] VITALS: BP 121/71
[2017-01-14 20:00] VITALS: BP 125/67
[2017-01-15] VITALS (7 sets, daily range): BP systolic 110–126; BP diastolic 43–79
[2017-01-15] MEDS: SOD CHL 0.9%/ KCL 20MEQ 1,000 ML IV SCH ×2 (01:40→01:45)
[2017-01-15] MEDS: VANCOMYCIN 1,250 MG in D5W 5% 250 ML IV SCH ×3 (03:21→19:02)
[2017-01-15 05:54] LABS: INR 1.1 (0.9-1.15)
[2017-01-15] MEDS: CeftoloZANE-TAZOB 1g/0.5g in D5W 5% 100 ML IV SCH ×3 (06:00→22:35)
[2017-01-15] MEDS: VANCOMYCIN HCL 125MG/5ML ORAL SOL PO SCH ×4 (06:00→22:34)
[2017-01-15 06:02] LABS: Calcium 9.1 mg/dL (8.5-10.1); Magnesium 1.8 mg/dL (1.6-2.6); Phosphorus 4.6 mg/dL (2.5-4.90); Potassium 3.7 mmol/L (3.5-5.1)
[2017-01-15 06:12] LABS: Basophils # (auto) 0.1 uL; Basophils % (auto) 0.9 % (0.0-2.0); CONDITION Y; Eosinophils # (auto) 0.6 uL; Eosinophils % (auto) 5.6 % (0.0-7.0); Hematocrit 27.7 % (41.0-53.0); Hemoglobin 9.3 g/dL (13.5-17.5); Lymphocytes % (auto) 20.4 % (10.0-50.0); Mean Corpuscular Hemoglobin 30.8 pg (28.0-32.0); Mean Corpuscular Hgb Conc. 33.4 g/dL (32.0-36.0); Mean Platelet Volume 6.6 fL (7.4-10.4); Monocytes % (auto) 9.9 % (0.0-12.0); Neutrophils # (auto) 6.3 uL; Neutrophils % (auto) 63.2 % (37.0-80.0); Platelet Count (auto) 748 10^3/uL (140-450); Red Cell Distribution Width 16.6 % (11.6-16.0)
[2017-01-15] MEDS: FLUCONAZOLE 200MG/100ML 100 ML IV SCH ×2 (09:49→09:55)
[2017-01-15] MEDS: ENOXAPARIN SOD 40 MG/0.4 ML SYRINGE SC SCH (09:49)
[2017-01-15] MEDS ORDERED: LIDOCAINE 2%HCL (LOCAL ANESTH.) INJ 20ML MDV ONE (13:39)
[2017-01-15] MEDS: KETOROLAC TROMETH 30 MG/ML 1ML VIAL IV PRN ×2 (16:17→22:35)
[2017-01-16] VITALS (7 sets, daily range): BP systolic 100–150; BP diastolic 56–94
[2017-01-16] MEDS: VANCOMYCIN 1,250 MG in D5W 5% 250 ML IV SCH ×3 (02:36→18:33)
[2017-01-16] MEDS: VANCOMYCIN HCL 125MG/5ML ORAL SOL PO SCH ×4 (05:42→21:59)
[2017-01-16] MEDS: CeftoloZANE-TAZOB 1g/0.5g in D5W 5% 100 ML IV SCH ×3 (05:43→21:58)
[2017-01-16 05:45] LABS: Basophils # (auto) 0.1 uL; CONDITION Y; Eosinophils # (auto) 0.7 uL; Eosinophils % (auto) 8.1 % (0.0-7.0); Hematocrit 27.8 % (41.0-53.0); Hemoglobin 9.2 g/dL (13.5-17.5); Lymphocytes # (auto) 1.7 uL; Lymphocytes % (auto) 21.4 % (10.0-50.0); Mean Corpuscular Hemoglobin 30.7 pg (28.0-32.0); Mean Corpuscular Hgb Conc. 33.1 g/dL (32.0-36.0); Mean Corpuscular Volume 92.7 fL (80.0-100.0); Mean Platelet Volume 6.5 fL (7.4-10.4); Monocytes # (auto) 0.8 uL; Monocytes % (auto) 10.5 % (0.0-12.0); Neutrophils # (auto) 4.7 uL; Platelet Count (auto) 675 10^3/uL (140-450); Red Cell Distribution Width 16.7 % (11.6-16.0); White Blood Cell 8.1 10^3/uL (4.4-10.8)
[2017-01-16 06:07] LABS: Phosphorus 4.9 mg/dL (2.5-4.90); Potassium 3.5 mmol/L (3.5-5.1)
[2017-01-16] MEDS: ENOXAPARIN SOD 40 MG/0.4 ML SYRINGE SC SCH (09:29)
[2017-01-16] MEDS: FLUCONAZOLE 200MG/100ML 100 ML IV SCH ×2 (09:29→10:45)
[2017-01-16] MEDS: KETOROLAC TROMETH 30 MG/ML 1ML VIAL IV PRN (22:01)
[2017-01-17] MEDS: VANCOMYCIN 1,250 MG in D5W 5% 250 ML IV SCH ×3 (02:49→18:12)
[2017-01-17 05:19] VITALS: BP 109/63
[2017-01-17 06:46] LABS: Basophils # (auto) 0.1 uL; CONDITION Y; DEFINITIVE SEE PRINTOUT; Eosinophils # (auto) 0.7 uL; Eosinophils % (auto) 10.9 % (0.0-7.0); Hematocrit 28.5 % (41.0-53.0); Hemoglobin 9.5 g/dL (13.5-17.5); Lymphocytes # (auto) 1.5 uL; Lymphocytes % (auto) 22.6 % (10.0-50.0); Mean Corpuscular Hemoglobin 30.7 pg (28.0-32.0); Mean Corpuscular Hgb Conc. 33.5 g/dL (32.0-36.0); Mean Corpuscular Volume 91.7 fL (80.0-100.0); Mean Platelet Volume 6.6 fL (7.4-10.4); Monocytes # (auto) 0.6 uL; Neutrophils # (auto) 3.8 uL; Neutrophils % (auto) 56.5 % (37.0-80.0); Platelet Count (auto) 683 10^3/uL (140-450); Red Cell Distribution Width 15.7 % (11.6-16.0); White Blood Cell 6.8 10^3/uL (4.4-10.8)
[2017-01-17] MEDS: CeftoloZANE-TAZOB 1g/0.5g in D5W 5% 100 ML IV SCH ×3 (06:56→22:19)
[2017-01-17] MEDS: VANCOMYCIN HCL 125MG/5ML ORAL SOL PO SCH ×4 (06:56→22:19)
[2017-01-17 08:00] VITALS: BP 128/93
[2017-01-17 08:28] LABS: BUN/Creatinine Ratio 18.9; Calcium 9.2 mg/dL (8.5-10.1); Magnesium 1.8 mg/dL (1.6-2.6); Phosphorus 4.5 mg/dL (2.5-4.90); Potassium 3.6 mmol/L (3.5-5.1)
[2017-01-17 09:00] VITALS: BP 128/93
[2017-01-17] MEDS: ENOXAPARIN SOD 40 MG/0.4 ML SYRINGE SC SCH (09:27)
[2017-01-17] MEDS: FLUCONAZOLE 200MG/100ML 100 ML IV SCH ×2 (09:27→11:00)
[2017-01-17 13:00] VITALS: BP 120/89
[2017-01-17 16:46] VITALS: BP 145/94
[2017-01-17 22:00] VITALS: BP 151/91
[2017-01-18] MEDS: VANCOMYCIN 1,250 MG in D5W 5% 250 ML IV SCH ×3 (03:00→19:25)
[2017-01-18] MEDS: CeftoloZANE-TAZOB 1g/0.5g in D5W 5% 100 ML IV SCH ×3 (05:18→21:15)
[2017-01-18] MEDS: VANCOMYCIN HCL 125MG/5ML ORAL SOL PO SCH (05:18)
[2017-01-18 05:30] VITALS: BP 162/97
[2017-01-18 09:00] VITALS: BP 145/93
[2017-01-18] MEDS: ENOXAPARIN SOD 40 MG/0.4 ML SYRINGE SC SCH (10:23)
[2017-01-18] MEDS: FLUCONAZOLE 200MG/100ML 100 ML IV SCH ×2 (10:24→12:20)
[2017-01-18 13:00] VITALS: BP 137/80
[2017-01-18 17:10] VITALS: BP 135/88
[2017-01-18 22:00] VITALS: BP 147/90
[2017-01-19] MEDS: VANCOMYCIN 1,250 MG in D5W 5% 250 ML IV SCH ×3 (03:30→19:42)
[2017-01-19 05:00] VITALS: BP 143/94
[2017-01-19] MEDS: CeftoloZANE-TAZOB 1g/0.5g in D5W 5% 100 ML IV SCH ×3 (05:51→21:15)
[2017-01-19 09:00] VITALS: BP 152/96
[2017-01-19] MEDS: ENOXAPARIN SOD 40 MG/0.4 ML SYRINGE SC SCH (11:23)
[2017-01-19] MEDS: FLUCONAZOLE 200MG/100ML 100 ML IV SCH (11:23)
[2017-01-19 13:53] VITALS: BP 142/89
[2017-01-19] MEDS ORDERED: CATHFLO ACTIVASE (ALTEPLASE) 2 MG VIAL IV ONE ×2 (15:15)
[2017-01-19 16:53] VITALS: BP 141/94
[2017-01-19 20:00] VITALS: BP 153/85
[2017-01-19 22:00] VITALS: BP 153/85
[2017-01-20] MEDS: VANCOMYCIN 1,250 MG in D5W 5% 250 ML IV SCH ×3 (02:40→18:31)
[2017-01-20 05:00] VITALS: BP 140/87
[2017-01-20 08:00] VITALS: BP 143/94
[2017-01-20] MEDS: CeftoloZANE-TAZOB 1g/0.5g in D5W 5% 100 ML IV SCH ×3 (10:53→21:27)
[2017-01-20] MEDS: ENOXAPARIN SOD 40 MG/0.4 ML SYRINGE SC SCH (10:54)
[2017-01-20 12:00] VITALS: BP 128/87
[2017-01-20] MEDS ORDERED: MORPHINE SULF INJ 2 MG/ML SYRINGE 1ML IV PRN (12:30)
[2017-01-20 16:51] VITALS: BP 153/92
[2017-01-20] MEDS: ACETAMINOPHEN 325 MG TAB PO PRN (18:18)
[2017-01-20 20:00] VITALS: BP 140/85
[2017-01-20 21:36] VITALS: BP 140/85
[2017-01-21] MEDS: VANCOMYCIN 1,250 MG in D5W 5% 250 ML IV SCH ×3 (02:26→18:54)
[2017-01-21 05:01] VITALS: BP 136/79
[2017-01-21] MEDS: CeftoloZANE-TAZOB 1g/0.5g in D5W 5% 100 ML IV SCH (05:10)
[2017-01-21 06:07] LABS: Basophils # (auto) 0 uL; Basophils % (auto) 0.5 % (0.0-2.0); CONDITION Y; Eosinophils # (auto) 0.3 uL; Eosinophils % (auto) 4.3 % (0.0-7.0); Hematocrit 30.5 % (41.0-53.0); Hemoglobin 10.3 g/dL (13.5-17.5); Lymphocytes # (auto) 1.5 uL; Lymphocytes % (auto) 18.4 % (10.0-50.0); Mean Corpuscular Hgb Conc. 33.6 g/dL (32.0-36.0); Mean Corpuscular Volume 89.2 fL (80.0-100.0); Mean Platelet Volume 6.5 fL (7.4-10.4); Monocytes # (auto) 0.9 uL; Monocytes % (auto) 10.8 % (0.0-12.0); Neutrophils # (auto) 5.3 uL; Platelet Count (auto) 741 10^3/uL (140-450)
[2017-01-21 06:29] LABS: BUN/Creatinine Ratio 11.1; Calcium 9.2 mg/dL (8.5-10.1); Magnesium 1.6 mg/dL (1.6-2.6); Potassium 3.6 mmol/L (3.5-5.1)
[2017-01-21 09:00] VITALS: BP 133/82
[2017-01-21] MEDS: ENOXAPARIN SOD 40 MG/0.4 ML SYRINGE SC SCH ×2 (10:00→10:51)
[2017-01-21] MEDS ORDERED: VANCOMYCIN PER PHARMACY 0 MG IV SCH (12:45)
[2017-01-21] MEDS ORDERED: MAGNESIUM SULFATE 1GM/100ML 100 ML IV ONE (12:45)
[2017-01-21 13:00] VITALS: BP 142/82
[2017-01-21] MEDS: ACETAMINOPHEN 325 MG TAB PO PRN (13:16)
[2017-01-21] MEDS: CeftoloZANE-TAZOB 1g/0.5g VL 1.5 GM in D5W 5% 100 ML IV SCH ×2 (14:47→21:35)
[2017-01-21 17:00] VITALS: BP 121/76
[2017-01-21 20:00] VITALS: BP 124/81
[2017-01-21 21:33] VITALS: BP 124/81
[2017-01-22] VITALS (7 sets, daily range): BP systolic 120–159; BP diastolic 60–84
[2017-01-22] MEDS: VANCOMYCIN 1,250 MG in D5W 5% 250 ML IV SCH ×3 (02:56→18:29)
[2017-01-22] MEDS: CeftoloZANE-TAZOB 1g/0.5g VL 1.5 GM in D5W 5% 100 ML IV SCH ×3 (05:55→21:57)
[2017-01-22] MEDS: ENOXAPARIN SOD 40 MG/0.4 ML SYRINGE SC SCH (10:00)
[2017-01-22] MEDS: ACETAMINOPHEN 325 MG TAB PO PRN (21:58)
[2017-01-23] MEDS: VANCOMYCIN 1,250 MG in D5W 5% 250 ML IV SCH (04:34)
[2017-01-23 05:00] VITALS: BP 127/78
[2017-01-23 06:11] LABS: Basophils # (auto) 0.1 uL; CONDITION Y; Eosinophils # (auto) 0.3 uL; Eosinophils % (auto) 4.7 % (0.0-7.0); Hematocrit 32.6 % (41.0-53.0); Hemoglobin 10.5 g/dL (13.5-17.5); Lymphocytes # (auto) 1.5 uL; Lymphocytes % (auto) 22.7 % (10.0-50.0); Mean Corpuscular Hgb Conc. 32.3 g/dL (32.0-36.0); Mean Corpuscular Volume 89.8 fL (80.0-100.0); Mean Platelet Volume 6.9 fL (7.4-10.4); Monocytes % (auto) 14.5 % (0.0-12.0); Neutrophils # (auto) 3.7 uL; Neutrophils % (auto) 57.1 % (37.0-80.0); Platelet Count (auto) 677 10^3/uL (140-450); Red Cell Distribution Width 16.3 % (11.6-16.0); White Blood Cell 6.6 10^3/uL (4.4-10.8)
[2017-01-23 06:20] LABS: INR 1.05 (0.9-1.15); Prothrombin Time 11.4 sec (9.37-12.3)
[2017-01-23 06:33] LABS: Bilirubin, Total 0.4 mg/dL (0.2-1.0); Calcium 9.5 mg/dL (8.5-10.1); Potassium 3.8 mmol/L (3.5-5.1); Total Protein 8.5 g/dL (6.4-8.2)
[2017-01-23] MEDS: CeftoloZANE-TAZOB 1g/0.5g VL 1.5 GM in D5W 5% 100 ML IV SCH (07:45)
[2017-01-23 09:00] VITALS: BP 122/77
[2017-01-23] MEDS: ENOXAPARIN SOD 40 MG/0.4 ML SYRINGE SC SCH (10:00)
== END 2017-01-23 12:03 | disposition home or self-care (01) | DRG 260 ==
LOC: ER 08:09 → TELE 08:10 → DOU IN ICU 12-28 23:47 → ICU WEST 12-29 00:55 → DOU IN ICU 01-11 11:40 → TELE-CENTR 01-15 18:01
PROVIDERS: ADMIT Internal Medicine; ATTEND Internal Medicine Pulmonary Disease
PROC: 5A1955Z Respiratory Ventilation, Greater than 96 Consecutive Hours (ICD-10-PCS; 2016-12-29)
PROC: 0BH17EZ Insertion of Endotracheal Airway into Trachea, Via Natural or Artificial Opening (ICD-10-PCS; 2016-12-29)
PROC: 0DH67UZ Insertion of Feeding Device into Stomach, Via Natural or Artificial Opening (ICD-10-PCS; 2016-12-29)
PROC: 30233N1 Transfusion of Nonautologous Red Blood Cells into Peripheral Vein, Percutaneous Approach (ICD-10-PCS; 2016-12-29)
PROC: 02H633Z Insertion of Infusion Device into Right Atrium, Percutaneous Approach (ICD-10-PCS; 2016-12-30)
PROC: 009U3ZX Drainage of Spinal Canal, Percutaneous Approach, Diagnostic (ICD-10-PCS; 2016-12-30)
PROC: 0F9G3ZZ Drainage of Pancreas, Percutaneous Approach (ICD-10-PCS; principal; 2017-01-15)
DX: K85.20 Alcohol induced acute pancreatitis without necrosis or infection (principal); J96.90 Respiratory failure, unspecified, unspecified whether with hypoxia or hypercapnia; N17.0 Acute kidney failure with tubular necrosis; G92 Toxic encephalopathy; E43 Unspecified severe protein-calorie malnutrition; J18.1 Lobar pneumonia, unspecified organism; J90 Pleural effusion, not elsewhere classified; F10.231 Alcohol dependence with withdrawal delirium; A04.7 Enterocolitis due to Clostridium difficile; A87.9 Viral meningitis, unspecified; B49 Unspecified mycosis; E86.0 Dehydration; R31.0 Gross hematuria; F17.210 Nicotine dependence, cigarettes, uncomplicated; E87.1 Hypo-osmolality and hyponatremia; F20.0 Paranoid schizophrenia; E87.6 Hypokalemia; D64.9 Anemia, unspecified; E11.9 Type 2 diabetes mellitus without complications; E83.39 Other disorders of phosphorus metabolism; J98.11 Atelectasis; K70.40 Alcoholic hepatic failure without coma; N39.0 Urinary tract infection, site not specified; I95.9 Hypotension, unspecified; R16.2 Hepatomegaly with splenomegaly, not elsewhere classified; K76.0 Fatty (change of) liver, not elsewhere classified; K70.10 Alcoholic hepatitis without ascites; M62.82 Rhabdomyolysis; B95.8 Unspecified staphylococcus as the cause of diseases classified elsewhere; Z22.39 Carrier of other specified bacterial diseases; Z78.1 Physical restraint status; Z86.73 Personal history of transient ischemic attack (TIA), and cerebral infarction without residual deficits; Z68.29 Body mass index [BMI] 29.0-29.9, adult
CPT/HCPCS: 36415; 36569; 36600; 51702; 70450; 71010; 73600; 74176; 75989; 76700; 76775; 80048; 80053; 80061; 80202; 80307; 81001; 82040; 82042; 82140; 82150; 82164; 82270; 82550; 82570; 82784; 82805; 82945; 82962; 83036; 83605; 83690; 83735; 84100; 84157; 84300; 84478; 85007; 85014; 85018; 85025; 85027; 85045; 85610; 85652; 86141; 86850; 86900; 86901; 86920; 87040; 87070; 87077; 87081; 87086; 87147; 87186; 87205; 87493; 87529; 87899; 89051; 93005; 93306; 94002; 94003; 94761; 95819; 96365; 96375; 97110; 97116; 97163; 97530; A4565; C9113; J0330; J0696; J1450; J1815; J1885; J1956; J2250; J2543; J2704; J3010; J3480; J3490; J7060; J7131

== ENCOUNTER 2017-04-01 00:30 | Emergency (ER) | payer MEDICAID ==
[~2017-04-01] VITALS: Ht 165.1 cm; Wt 79.4 kg
[2017-04-01 01:50] LABS: Basophils # (auto) 0 uL; Eosinophils # (auto) 0.3 uL; Hematocrit 43.6 % (41.0-53.0); Hemoglobin 14.4 g/dL (13.5-17.5); Mean Platelet Volume 6.9 fL (6.9-10.8); Monocytes # (auto) 0.9 uL; Nucleated Red Blood Cells % 0.1 %
[2017-04-01 01:52] LABS: Basophils % (auto) 0.6 % (0.0-2.0); Eosinophils % (auto) 3.7 % (0.0-7.0); Lymphocytes # (auto) 3.4 uL; Mean Corpuscular Hemoglobin 25.8 pg (28.0-32.0); Mean Corpuscular Volume 78.2 fL (80.0-100.0); Neutrophils # (auto) 3.9 uL; Neutrophils % (auto) 45.7 % (37.0-80.0); Platelet Count (auto) 353 10^3/uL (140-450); Red Cell Distribution Width 15.7 % (11.8-14.3); White Blood Cell 8.6 10^3/uL (4.4-10.8)
[2017-04-01 02:05] LABS: BUN/Creatinine Ratio 20.7; Calcium 9.4 mg/dL (8.5-10.1); Potassium 3.8 mmol/L (3.5-5.1)
[2017-04-01 02:11] LABS: Bilirubin, Total 0.3 mg/dL (0.2-1.0); Total Protein 8.9 g/dL (6.4-8.2)
[2017-04-01 04:30] VITALS: BP 131/90
[2017-04-01] MEDS ORDERED: LIDOCAINE 1% HCL (LOCAL ANESTH.) INJ 20ML MDV ONE (04:57)
== END 2017-04-01 05:38 | disposition home or self-care (01) ==
LOC: ER 00:30
DX: T83.018A Breakdown (mechanical) of other urinary catheter, initial encounter (principal); F17.210 Nicotine dependence, cigarettes, uncomplicated; E11.9 Type 2 diabetes mellitus without complications
CPT/HCPCS: 36415; 51705; 74176; 80053; 85025; 99285; J2001